=== PATIENT | female | born 1940 | race Caucasian/White ===

== ENCOUNTER 2018-09-22 19:53 | Inpatient (IN) | payer OTHER ==
[2018-09-22 20:17] LABS: WHITE BLOOD COUNT 8.2 10^3/ul (4.8-10.8)
[2018-09-22 20:17] LABS: HEMATOCRIT 27.4 % (37.0-47.0); HEMOGLOBIN 8.7 g/dl (12.0-16.0); MEAN CORPUSCULAR HEMOGLOBIN 28.2 pg (29.0-33.0); MEAN CORPUSCULAR HGB CONC 31.8 g/dl (32.0-37.0); MEAN CORPUSCULAR VOLUME 88.7 fl (82.0-101.0); MEAN PLATELET VOLUME 10.7 fl (7.4-10.4); PLATELET COUNT 198 10^3/UL (140-415); RED BLOOD COUNT 3.09 10^6/ul (4.20-5.40); RED CELL DISTRIBUTION WIDTH 15.9 % (11.5-14.5)
[2018-09-22 20:33] LABS: POSITIVE DIFF @See below
[2018-09-22 20:34] LABS: ADD MAN DIFF? YES
[2018-09-22 20:36] LABS: ALANINE AMINOTRANSFERASE 9 IU/L (13-69); ALBUMIN 2.7 g/dl (3.3-4.9); ALBUMIN/GLOBULIN RATIO 1.17; ALKALINE PHOSPHATASE 80 IU/L (42-121); ANION GAP 12 (5-13); ASPARTATE AMINO TRANSFERASE 13 IU/L (15-46); BILIRUBIN,INDIRECT 0.1 mg/dl (0-1.1); BILIRUBIN,TOTAL 0.1 mg/dl (0.2-1.3); BLOOD UREA NITROGEN 91 mg/dl (7-20); CALCIUM 8.1 mg/dl (8.4-10.2); CARBON DIOXIDE 16 mmol/L (21-31); CHLORIDE 102 mmol/L (97-110); CREATININE 2.52 mg/dl (0.44-1.00); GLUCOSE 99 mg/dl (70-220); POTASSIUM 3.4 mmol/L (3.5-5.1); SODIUM 130 mmol/L (135-144)
[2018-09-22 20:36] LABS: LACTIC ACID 0.7 mmol/L (0.5-2.0)
[2018-09-22] MEDS: AZTREONAM 1 GM/NS (PMX) 50 ML IVPB (20:36)
[2018-09-22] MEDS: SODIUM CHLORIDE 0.9% 1L BAG IV* (20:36)
[2018-09-22 20:37] LABS: INR 3.82; PROTIME 38.9 Sec (11.9-14.9)
[2018-09-22 20:45] LABS: TROPONIN-I < 0.012 ng/ml (0.000-0.120)
[2018-09-22 20:55] LABS: PARTIAL THROMBOPLASTIN TIME 96.8 Sec (23.0-35.0)
[2018-09-22] MEDS: LINEZOLID 600 MG/D5W (PMX) 300 ML IVPB (21:11)
[2018-09-22 21:34] LABS: ANISOCYTOSIS 1+ (0-0); BAND NEUTROPHILS #M 1.4 10^3/ul (0.0-0.6); BAND NEUTROPHILS % (M) 18 % (0-4); EOSINOPHILS % (M) 1 % (0-7); GIANT THROMBO% (M) 1 % (0-0); LYMPHOCYTES #M 0.8 10^3/ul (0.8-2.9); LYMPHOCYTES % (M) 10 % (15-51); MICROCYTOSIS 1+ (0-0); MONOCYTE #M 0.5 10^3/ul (0.3-0.9); MONOCYTES % (M) 7 % (0-11); PLATELET ESTIMATE NORMAL; POIKILOCYTOSIS 1+ (0-0); POLYCHROMASIA 3+ (0-0); SEG NEUT #M 5.4 10^3/ul (1.6-7.5); SEGMENTED NEUTROPHILS (M) % 64 % (39-77); SMUDGE%M 2 % (0-0)
[2018-09-22] MEDS ORDERED: CALCIUM CARBONATE 1000 MG PO (22:00)
[2018-09-22] MEDS ORDERED: TIZANIDINE 4 MG TAB PO (22:00)
[2018-09-22] MEDS ORDERED: ACETAMINOPHEN 325 MG TAB PO (22:00)
[2018-09-22] MEDS ORDERED: ONDANSETRON 4 MG TAB PO (22:00)
[2018-09-22] MEDS ORDERED: ONDANSETRON 4 MG INJ IV (22:00)
[2018-09-22] MEDS ORDERED: DOCUSATE SODIUM 100 MG CAP PO (22:00)
[2018-09-22] MEDS ORDERED: NACL 0.9% 3 ML SYG IV (22:00)
[2018-09-22] MEDS ORDERED: MAGNESIUM HYDROXIDE 30ML CUP PO (22:00)
[2018-09-22] MEDS ORDERED: BISACODYL (EC) 5 MG TAB PO (22:00)
[2018-09-23] MEDS: POTASSIUM CHLORIDE 30 MEQ in SOD CHLORIDE 0.9% 1,000 ML IV (00:28)
[2018-09-23] MEDS: metroNIDAZOLE 500 MG/NS (PMX) 100 ML IVPB ×4 (00:28→21:26)
[2018-09-23] MEDS: LOPERAMIDE 2 MG CAP PO ×5 (00:28→12:00)
[2018-09-23] MEDS: HEPARIN 5,000 UNIT/1 ML VIAL SC ×3 (00:29→14:00)
[2018-09-23 00:51] LABS: ANION GAP 11 (5-13); BLOOD UREA NITROGEN 90 mg/dl (7-20); CALCIUM 8.2 mg/dl (8.4-10.2); CARBON DIOXIDE 17 mmol/L (21-31); CHLORIDE 103 mmol/L (97-110); CREATININE 2.48 mg/dl (0.44-1.00); GLUCOSE 91 mg/dl (70-220); POTASSIUM 3.3 mmol/L (3.5-5.1); SODIUM 131 mmol/L (135-144)
[2018-09-23 01:28] LABS: ADD UMIC YES; UR ASCORBIC ACID 40 mg/dL (NEGATIVE); UR BACTERIA FEW /HPF (NONE SEEN); UR BILIRUBIN (Dip) NEGATIVE (NEGATIVE); UR BLOOD (Dip) NEGATIVE (NEGATIVE); UR CLARITY CLOUDY (CLEAR); UR COLOR YELLOW (YELLOW); UR GLUCOSE (Dip) NEGATIVE (NEGATIVE); UR KETONES (Dip) NEGATIVE (NEGATIVE); UR LEUKOCYTE ESTERASE (Dip) 3+ Leu/ul (NEGATIVE); UR NITRITE (Dip) NEGATIVE (NEGATIVE); UR NONSQUAMOUS EPITHELIAL CELL 1 /HPF (NONE SEEN); UR RBC 2 /HPF (0-5); UR SPECIFIC GRAVITY (Dip) 1.011 (1.003-1.030); UR SQUAMOUS EPITHELIAL CELL FEW /HPF (FEW); UR TOTAL PROTEIN (Dip) NEGATIVE (NEGATIVE); UR UROBILINOGEN (Dip) NEGATIVE (NEGATIVE); UR WBC 36 /HPF (0-5)
[2018-09-23 01:28] LABS: OCCULT BLOOD STOOL NEGATIVE (NEGATIVE)
[2018-09-23 01:42] LABS: OSMOLALITY 299 mOsm/kg (280-295)
[2018-09-23 01:57] LABS: CREATININE,URINE RANDOM 101.17 mg/dl (20-320)
[2018-09-23 01:58] LABS: SODIUM,URINE RANDOM < 13 mmol/L (30-90)
[2018-09-23 02:00] LABS: OSMOLALITY,URINE 264 mOsm/kg (250-1200)
[2018-09-23 02:15] LABS: PROTEIN/CREAT RATIO 0.33 RATIO
[2018-09-23] MEDS ORDERED: PENDING SANTYL ORDER FOR WOUND CARE XX (03:30)
[2018-09-23] MEDS ORDERED: HEPARIN 5,000 UNIT/0.5 ML VIAL ×2 (05:21)
[2018-09-23] MEDS ORDERED: LEVOTHYROXINE 100 MCG TAB (05:25)
[2018-09-23] MEDS: LEVOTHYROXINE 100 MCG TAB PO (06:04)
[2018-09-23 06:29] LABS: HEMATOCRIT 28.9 % (37.0-47.0); HEMOGLOBIN 8.8 g/dl (12.0-16.0); MEAN CORPUSCULAR HEMOGLOBIN 27.1 pg (29.0-33.0); MEAN CORPUSCULAR HGB CONC 30.4 g/dl (32.0-37.0); MEAN CORPUSCULAR VOLUME 88.9 fl (82.0-101.0); MEAN PLATELET VOLUME 10.7 fl (7.4-10.4); PLATELET COUNT 207 10^3/UL (140-415); RED BLOOD COUNT 3.25 10^6/ul (4.20-5.40); RED CELL DISTRIBUTION WIDTH 15.9 % (11.5-14.5)
[2018-09-23 06:36] LABS: ADD MAN DIFF? YES; POSITIVE DIFF @See below
[2018-09-23 06:41] LABS: INR 3.96; PT RATIO 3.1
[2018-09-23 06:54] LABS: IRON 29 ug/dl (35-150)
[2018-09-23 06:58] LABS: ALANINE AMINOTRANSFERASE 7 IU/L (13-69); ALBUMIN 2.7 g/dl (3.3-4.9); ALBUMIN/GLOBULIN RATIO 1.17; ALKALINE PHOSPHATASE 85 IU/L (42-121); ANION GAP 13 (5-13); ASPARTATE AMINO TRANSFERASE 12 IU/L (15-46); BLOOD UREA NITROGEN 89 mg/dl (7-20); CALCIUM 8.1 mg/dl (8.4-10.2); CARBON DIOXIDE 16 mmol/L (21-31); CHLORIDE 104 mmol/L (97-110); CREATININE 2.38 mg/dl (0.44-1.00); GLUCOSE 109 mg/dl (70-220); MAGNESIUM 2.3 mg/dl (1.7-2.5); POTASSIUM 3.5 mmol/L (3.5-5.1); SODIUM 133 mmol/L (135-144)
[2018-09-23 07:03] LABS: % IRON SATURATION 15 % SAT (22-52); TOTAL IRON BINDING CAPACITY 197 ug/dl (241-421)
[2018-09-23 07:37] LABS: BAND NEUTROPHILS #M 1.8 10^3/ul (0.0-0.6); BAND NEUTROPHILS % (M) 27 % (0-4); EOSINOPHILS % (M) 3 % (0-7); HYPOCHROMASIA 1+ (0-0); LYMPHOCYTES #M 0.7 10^3/ul (0.8-2.9); LYMPHOCYTES % (M) 11 % (15-51); METAMYELOCYTES %M 1 % (0-0); MONOCYTE #M 0.5 10^3/ul (0.3-0.9); MONOCYTES % (M) 8 % (0-11); PLATELET ESTIMATE NORMAL; POIKILOCYTOSIS 1+ (0-0); POLYCHROMASIA 1+ (0-0); PROMYELOCYTES % (M) 1 % (0-0); REACTIVE LYMPHOCYTES% (M) 1 % (0-0); SEG NEUT #M 3.5 10^3/ul (1.6-7.5); SEGMENTED NEUTROPHILS (M) % 48 % (39-77); SMUDGE%M 61 % (0-0); SPHEROCYTES 1+ (0-0)
[2018-09-23] MEDS: ERTAPENEM SODIUM 0.5 GM in SOD CHLORIDE 0.9% 100 ML IVPB (07:50)
[2018-09-23] MEDS: PANTOPRAZOLE (EC) 40 MG TAB PO (07:50)
[2018-09-23 08:09] LABS: HEMOGLOBIN A1C 5.3 % (0-5.9)
[2018-09-23 08:39] LABS: FERRITIN 93.8 ng/ml (11.1-264.0)
[2018-09-23] MEDS: ASCORBIC ACID 500 MG TAB PO ×2 (08:56→21:25)
[2018-09-23] MEDS: FERROUS SULFATE (EC) 325 MG TAB PO ×2 (08:56→21:26)
[2018-09-23] MEDS: GABAPENTIN 300 MG CAP PO ×3 (08:56→21:25)
[2018-09-23] MEDS: MAGNESIUM OXIDE 400 MG TAB PO (08:56)
[2018-09-23] MEDS: CALCIUM/VITAMIN D (500/200) TAB PO (08:56)
[2018-09-23] MEDS: MULTIVITAMINS/MINERALS TAB PO (08:56)
[2018-09-23] MEDS: LINEZOLID 600 MG/D5W (PMX) 300 ML IVPB ×2 (08:59→21:26)
[2018-09-23] MEDS ORDERED: NON-FORMULARY/PATIENT OWN MED (Amino Acids/Protein Hydrolys (Pro-Stat Liquid) 30 ML) PO (09:00)
[2018-09-23] MEDS: HYDROCODONE/APAP (5/325) TAB PO (10:47)
[2018-09-23 12:06] LABS: ADD MAN DIFF? NO
[2018-09-23 12:08] LABS: WHITE BLOOD COUNT 5.2 10^3/ul (4.8-10.8)
[2018-09-23 12:08] LABS: ABNORMAL IP MESSAGE 1; BASOPHILS % 0.2 % (0.0-2.0); EOSINOPHILS # 0.1 10^3/ul (0.0-0.5); EOSINOPHILS % 2.3 % (0.0-7.0); HEMATOCRIT 29.9 % (37.0-47.0); HEMOGLOBIN 9.4 g/dl (12.0-16.0); LYMPHOCYTES # 0.6 10^3/ul (0.8-2.9); LYMPHOCYTES % 11.3 % (15.0-51.0); MEAN CORPUSCULAR HGB CONC 31.4 g/dl (32.0-37.0); MEAN PLATELET VOLUME 10.5 fl (7.4-10.4); MONOCYTE # 0.5 10^3/ul (0.3-0.9); MONOCYTES % 9.2 % (0.0-11.0); NEUTROPHILS % 76.2 % (39.0-77.0); PLATELET COUNT 166 10^3/UL (140-415); RED BLOOD COUNT 3.36 10^6/ul (4.20-5.40); RED CELL DISTRIBUTION WIDTH 15.9 % (11.5-14.5)
[2018-09-23] MEDS: SOD CHLORIDE 0.9% 1,000 ML IV ×2 (12:31→14:30)
[2018-09-23 12:43] LABS: POSITIVE DIFF @See below
[2018-09-23] MEDS ORDERED: SOD CHLORIDE 0.9% 1,000 ML IV (13:00)
[2018-09-23 13:10] LABS: TROPONIN-I < 0.012 ng/ml (0.000-0.120)
[2018-09-23] MEDS ORDERED: [UNRECOGNIZED DRUG - REMARK] IV (13:30)
[2018-09-23] MEDS: AMIODARONE 150MG/D5W BOLUS 100 ML IV ×2 (13:30→19:28)
[2018-09-23 13:35] LABS: ANION GAP 11 (5-13); BLOOD UREA NITROGEN 87 mg/dl (7-20); CALCIUM 7.8 mg/dl (8.4-10.2); CARBON DIOXIDE 13 mmol/L (21-31); CHLORIDE 107 mmol/L (97-110); CREATININE 2.26 mg/dl (0.44-1.00); GLUCOSE 90 mg/dl (70-220); MAGNESIUM 2.3 mg/dl (1.7-2.5); PHOSPHORUS 5.5 mg/dl (2.5-4.9); POTASSIUM 3.4 mmol/L (3.5-5.1); SODIUM 131 mmol/L (135-144)
[2018-09-23] MEDS: LIDOCAINE 1% (MPF) 5 ML VIAL SC ×2 (16:30→17:00)
[2018-09-23 16:32] LABS: TROPONIN-I < 0.012 ng/ml (0.000-0.120)
[2018-09-23] MEDS: VANCOMYCIN HCL 250 MG/5ML POSYG PO (17:46)
[2018-09-23] MEDS: PHENYLephrine 80 MG in DEXTROSE 5% 492 ML IV (18:58)
[2018-09-23] MEDS: DIGOXIN 500 MCG INJ IV (18:59)
[2018-09-23 19:00] LABS: CK-MB 0.56 ng/ml (0.0-2.4); TROPONIN-I < 0.012 ng/ml (0.000-0.120)
[2018-09-23 19:02] LABS: CREATINE KINASE < 20 IU/L (23-200)
[2018-09-23] MEDS: AMIODARONE 900 MG in DEXTROSE 5% 482 ML IV (20:01)
[2018-09-23] MEDS ORDERED: AMIODARONE 200 MG TAB PO (21:00)
[2018-09-24] MEDS: DIGOXIN 500 MCG INJ IV
[2018-09-24] MEDS: VANCOMYCIN HCL 250 MG/5ML POSYG PO ×4 (00:05→18:10)
[2018-09-24] MEDS: ONDANSETRON 4 MG INJ IV ×2 (00:19→06:47)
[2018-09-24 01:35] LABS: CREATINE KINASE < 20 IU/L (23-200)
[2018-09-24 01:46] LABS: CK-MB 0.79 ng/ml (0.0-2.4); TROPONIN-I 0.026 ng/ml (0.000-0.120)
[2018-09-24 05:30] LABS: ADD MAN DIFF? NO
[2018-09-24] MEDS: metroNIDAZOLE 500 MG/NS (PMX) 100 ML IVPB ×3 (05:49→22:07)
[2018-09-24 05:52] LABS: INR 3.19; PROTIME 33.6 Sec (11.9-14.9); PT RATIO 2.6
[2018-09-24 05:58] LABS: CREATINE KINASE < 20 IU/L (23-200)
[2018-09-24 06:08] LABS: TROPONIN-I 0.031 ng/ml (0.000-0.120)
[2018-09-24 06:12] LABS: CK-MB 0.76 ng/ml (0.0-2.4)
[2018-09-24] MEDS: PANTOPRAZOLE (EC) 40 MG TAB PO (06:47)
[2018-09-24] MEDS: LEVOTHYROXINE 100 MCG TAB PO (06:47)
[2018-09-24] MEDS ORDERED: SOD CHLORIDE 0.9% 1,000 ML IV (07:00)
[2018-09-24 07:09] LABS: WHITE BLOOD COUNT 9.6 10^3/ul (4.8-10.8)
[2018-09-24 07:09] LABS: BASOPHILS % 0.3 % (0.0-2.0); EOSINOPHILS # 0.1 10^3/ul (0.0-0.5); EOSINOPHILS % 0.5 % (0.0-7.0); HEMATOCRIT 31.1 % (37.0-47.0); HEMOGLOBIN 9.6 g/dl (12.0-16.0); LYMPHOCYTES # 0.7 10^3/ul (0.8-2.9); LYMPHOCYTES % 7.6 % (15.0-51.0); MEAN CORPUSCULAR HEMOGLOBIN 27.6 pg (29.0-33.0); MEAN CORPUSCULAR HGB CONC 30.9 g/dl (32.0-37.0); MEAN CORPUSCULAR VOLUME 89.4 fl (82.0-101.0); MEAN PLATELET VOLUME 10.9 fl (7.4-10.4); MONOCYTE # 0.9 10^3/ul (0.3-0.9); MONOCYTES % 9.8 % (0.0-11.0); NEUTROPHIL # 7.7 10^3/ul (1.6-7.5); NEUTROPHILS % 80.2 % (39.0-77.0); PLATELET COUNT 275 10^3/UL (140-415); RED BLOOD COUNT 3.48 10^6/ul (4.20-5.40); RED CELL DISTRIBUTION WIDTH 15.9 % (11.5-14.5)
[2018-09-24 07:40] LABS: ANION GAP 13 (5-13)
[2018-09-24 07:42] LABS: BLOOD UREA NITROGEN 85 mg/dl (7-20); CARBON DIOXIDE 15 mmol/L (21-31); CHLORIDE 106 mmol/L (97-110); CREATININE 2.43 mg/dl (0.44-1.00); GLUCOSE 102 mg/dl (70-220); POTASSIUM 3.6 mmol/L (3.5-5.1); SODIUM 134 mmol/L (135-144)
[2018-09-24 07:43] LABS: CALCIUM 8.2 mg/dl (8.4-10.2); MAGNESIUM 2.4 mg/dl (1.7-2.5); PHOSPHORUS 6.4 mg/dl (2.5-4.9)
[2018-09-24] MEDS: ERTAPENEM SODIUM 0.5 GM in SOD CHLORIDE 0.9% 100 ML IVPB (08:00)
[2018-09-24] MEDS: SOD CHLORIDE 0.9% 1,000 ML IV ×2 (08:36→19:00)
[2018-09-24] MEDS: ASCORBIC ACID 500 MG TAB PO ×2 (08:47→21:06)
[2018-09-24] MEDS: MULTIVITAMINS/MINERALS TAB PO (08:47)
[2018-09-24] MEDS: GABAPENTIN 300 MG CAP PO ×3 (08:48→21:06)
[2018-09-24] MEDS: FERROUS SULFATE (EC) 325 MG TAB PO ×2 (08:48→21:06)
[2018-09-24] MEDS: MAGNESIUM OXIDE 400 MG TAB PO (08:49)
[2018-09-24] MEDS: LINEZOLID 600 MG/D5W (PMX) 300 ML IVPB ×2 (08:51→21:02)
[2018-09-24] MEDS: CALCIUM/VITAMIN D (500/200) TAB PO (08:51)
[2018-09-24] MEDS: HYDROCODONE/APAP (5/325) TAB PO (16:04)
[2018-09-24] MEDS: PHENYLephrine 80 MG in DEXTROSE 5% 492 ML IV (16:46)
[2018-09-24] MEDS: AMIODARONE 200 MG TAB PO (21:06)
[2018-09-25] MEDS: VANCOMYCIN HCL 250 MG/5ML POSYG PO ×4 (00:18→18:45)
[2018-09-25] MEDS: SOD CHLORIDE 0.9% 1,000 ML IV ×2 (02:43→16:48)
[2018-09-25 04:52] LABS: ADD MAN DIFF? NO
[2018-09-25 04:56] LABS: BASOPHILS % 0.1 % (0.0-2.0); EOSINOPHILS # 0.2 10^3/ul (0.0-0.5); EOSINOPHILS % 2.2 % (0.0-7.0); HEMOGLOBIN 9.3 g/dl (12.0-16.0); LYMPHOCYTES % 11.1 % (15.0-51.0); MEAN CORPUSCULAR HEMOGLOBIN 27.6 pg (29.0-33.0); MEAN PLATELET VOLUME 10.2 fl (7.4-10.4); NEUTROPHIL # 6.7 10^3/ul (1.6-7.5); NEUTROPHILS % 73.6 % (39.0-77.0); PLATELET COUNT 261 10^3/UL (140-415); RED BLOOD COUNT 3.37 10^6/ul (4.20-5.40); RED CELL DISTRIBUTION WIDTH 16.2 % (11.5-14.5)
[2018-09-25 04:56] LABS: WHITE BLOOD COUNT 9.1 10^3/ul (4.8-10.8)
[2018-09-25 05:20] LABS: PROTIME 28.6 Sec (11.9-14.9); PT RATIO 2.2
[2018-09-25 05:22] LABS: ANION GAP 13 (5-13); BLOOD UREA NITROGEN 77 mg/dl (7-20); CALCIUM 8.1 mg/dl (8.4-10.2); CARBON DIOXIDE 16 mmol/L (21-31); CHLORIDE 103 mmol/L (97-110); CREATININE 2.85 mg/dl (0.44-1.00); GLUCOSE 82 mg/dl (70-220); MAGNESIUM 2.5 mg/dl (1.7-2.5); PHOSPHORUS 6.2 mg/dl (2.5-4.9); POTASSIUM 3.6 mmol/L (3.5-5.1); SODIUM 132 mmol/L (135-144)
[2018-09-25] MEDS: metroNIDAZOLE 500 MG/NS (PMX) 100 ML IVPB ×3 (05:35→22:33)
[2018-09-25] MEDS: ERTAPENEM SODIUM 0.5 GM in SOD CHLORIDE 0.9% 100 ML IVPB (07:52)
[2018-09-25] MEDS: PANTOPRAZOLE (EC) 40 MG TAB PO (07:52)
[2018-09-25] MEDS: LEVOTHYROXINE 100 MCG TAB PO (07:52)
[2018-09-25 08:59] LABS: AADO2 Arterial 69.7 mmHg (7.0-24.0); Allen Test ACCEPTAB; Arterial Base Excess -13.5 mmol/L (-3.0-3); Arterial Blood Gas Oxygen Sat 93.1 mmHG (95.0-100.0); Arterial COHb 0.4 % (0.0-3.0); Arterial Fraction of Oxyhgb 92.5 % (93.0-99.0); Arterial MetHb 0.2 % (0.0-1.5); Arterial Total Hemglobin 10.8 g/dl (12.0-18.0); Arterial pCO2 45.6 mmhg (35-45); MODE NASAL CANNULA; Site Right Radial
[2018-09-25] MEDS: ASCORBIC ACID 500 MG TAB PO ×2 (09:41→21:00)
[2018-09-25] MEDS: MAGNESIUM OXIDE 400 MG TAB PO (09:41)
[2018-09-25] MEDS: MULTIVITAMINS/MINERALS TAB PO (09:41)
[2018-09-25] MEDS: CALCIUM/VITAMIN D (500/200) TAB PO (09:41)
[2018-09-25] MEDS: FERROUS SULFATE (EC) 325 MG TAB PO ×2 (09:41→21:00)
[2018-09-25] MEDS: GABAPENTIN 300 MG CAP PO ×3 (09:42→21:00)
[2018-09-25] MEDS: LINEZOLID 600 MG/D5W (PMX) 300 ML IVPB ×2 (09:42→21:22)
[2018-09-25] MEDS: AMIODARONE 200 MG TAB PO ×2 (09:42→21:00)
[2018-09-25 10:26] LABS: FREE T4 (FREE THYROXINE) 1.09 ng/dl (0.85-1.93)
[2018-09-25] MEDS: HYDROCODONE/APAP (5/325) TAB PO (10:31)
[2018-09-25] MEDS: SODIUM BICARBONATE (IV ADD) 150 MEQ in DEXTROSE 5% 850 ML IV ×2 (11:12→23:52)
[2018-09-25] MEDS: LORAZEPAM 2 MG INJ IV (14:36)
[2018-09-25] MEDS: WARFARIN 2.5 MG TAB PO (17:14)
[2018-09-25 17:29] LABS: AADO2 Arterial 272.4 mmHg (7.0-24.0); Allen Test ACCEPTAB; Arterial Base Excess -15.9 mmol/L (-3.0-3); Arterial Blood Gas Oxygen Sat 98.7 mmHG (95.0-100.0); Arterial COHb 0.2 % (0.0-3.0); Arterial Fraction of Oxyhgb 98.1 % (93.0-99.0); Arterial HCO3 15.3 mmol/L (22.0-26.0); Arterial MetHb 0.4 % (0.0-1.5); Arterial Total Hemglobin 11.5 g/dl (12.0-18.0); Arterial pCO2 62.1 mmhg (35-45); MODE MASK - SIMPLE; Site Right Radial
[2018-09-25] MEDS: FLUMAZENIL 0.5 MG INJ IV ×2 (21:20→22:08)
[2018-09-25] MEDS: NALOXONE (0.4 MG/ML) INJ IV ×2 (21:35→22:08)
[2018-09-26] MEDS: VANCOMYCIN HCL 250 MG/5ML POSYG PO ×4 (00:36→17:05)
[2018-09-26] MEDS: SOD CHLORIDE 0.9% 1,000 ML IV ×2 (02:01→03:33)
[2018-09-26] MEDS ORDERED: LORAZEPAM 2 MG INJ IV (03:00)
[2018-09-26 04:33] LABS: AADO2 Arterial 316.4 mmHg (7.0-24.0); Allen Test ACCEPTAB; Arterial Base Excess -15.4 mmol/L (-3.0-3); Arterial Blood Gas Oxygen Sat 96.9 mmHG (95.0-100.0); Arterial COHb 0.1 % (0.0-3.0); Arterial Fraction of Oxyhgb 96.4 % (93.0-99.0); Arterial HCO3 16.4 mmol/L (22.0-26.0); Arterial MetHb 0.4 % (0.0-1.5); Arterial Total Hemglobin 11.4 g/dl (12.0-18.0); Arterial pCO2 70.7 mmhg (35-45); Blood Gas IEPAP 20/10; MODE MASK - BIPAP; Site Left Radial
[2018-09-26] MEDS: NA BICARBONATE 8.4% 50 ML SYG IV ×2 (04:59)
[2018-09-26 05:08] LABS: ADD MAN DIFF? NO
[2018-09-26 05:13] LABS: BASOPHILS % 0.3 % (0.0-2.0); EOSINOPHILS % 0.1 % (0.0-7.0); HEMATOCRIT 32.8 % (37.0-47.0); LYMPHOCYTES # 0.6 10^3/ul (0.8-2.9); LYMPHOCYTES % 4.4 % (15.0-51.0); MEAN CORPUSCULAR HEMOGLOBIN 27.6 pg (29.0-33.0); MEAN CORPUSCULAR HGB CONC 30.5 g/dl (32.0-37.0); MEAN CORPUSCULAR VOLUME 90.6 fl (82.0-101.0); MEAN PLATELET VOLUME 9.9 fl (7.4-10.4); MONOCYTE # 0.9 10^3/ul (0.3-0.9); MONOCYTES % 5.9 % (0.0-11.0); NEUTROPHIL # 12.2 10^3/ul (1.6-7.5); PLATELET COUNT 312 10^3/UL (140-415); RED BLOOD COUNT 3.62 10^6/ul (4.20-5.40); RED CELL DISTRIBUTION WIDTH 15.9 % (11.5-14.5)
[2018-09-26 05:13] LABS: WHITE BLOOD COUNT 14.3 10^3/ul (4.8-10.8)
[2018-09-26 05:35] LABS: PHOSPHORUS 7.4 mg/dl (2.5-4.9)
[2018-09-26 05:35] LABS: INR 2.19; MAGNESIUM 2.5 mg/dl (1.7-2.5); PROTIME 24.9 Sec (11.9-14.9); PT RATIO 1.9
[2018-09-26 05:46] LABS: ALANINE AMINOTRANSFERASE 20 IU/L (13-69); ALBUMIN 2.9 g/dl (3.3-4.9); ALBUMIN/GLOBULIN RATIO 1.31; ALKALINE PHOSPHATASE 79 IU/L (42-121); ANION GAP 14 (5-13); ASPARTATE AMINO TRANSFERASE 15 IU/L (15-46); BLOOD UREA NITROGEN 76 mg/dl (7-20); CALCIUM 7.9 mg/dl (8.4-10.2); CARBON DIOXIDE 17 mmol/L (21-31); CHLORIDE 100 mmol/L (97-110); CREATININE 3.36 mg/dl (0.44-1.00); GLUCOSE 136 mg/dl (70-220); SODIUM 131 mmol/L (135-144); TOTAL PROTEIN 5.1 g/dl (6.1-8.1)
[2018-09-26] MEDS: metroNIDAZOLE 500 MG/NS (PMX) 100 ML IVPB ×3 (06:09→21:38)
[2018-09-26 06:18] LABS: AADO2 Arterial 329.2 mmHg (7.0-24.0); Arterial Base Excess -11.6 mmol/L (-3.0-3); Arterial Blood Gas Oxygen Sat 97.8 mmHG (95.0-100.0); Arterial COHb 0.1 % (0.0-3.0); Arterial Fraction of Oxyhgb 97.4 % (93.0-99.0); Arterial HCO3 17.6 mmol/L (22.0-26.0); Arterial MetHb 0.3 % (0.0-1.5); Arterial Total Hemglobin 11.6 g/dl (12.0-18.0); Arterial pCO2 54.7 mmhg (35-45); Blood Gas IEPAP 20/10; MODE MASK - BIPAP; Site Left Radial
[2018-09-26] MEDS: PHENYLephrine 80 MG in DEXTROSE 5% 492 ML IV (06:20)
[2018-09-26] MEDS: PANTOPRAZOLE (EC) 40 MG TAB PO (07:05)
[2018-09-26] MEDS: SODIUM BICARBONATE (IV ADD) 150 MEQ in DEXTROSE 5% 850 ML IV ×2 (08:12→18:38)
[2018-09-26] MEDS: LINEZOLID 600 MG/D5W (PMX) 300 ML IVPB ×2 (08:12→21:38)
[2018-09-26] MEDS: FUROSEMIDE 40 MG INJ IV (08:12)
[2018-09-26] MEDS: AMIODARONE 200 MG TAB PO ×2 (09:00→21:38)
[2018-09-26] MEDS: FERROUS SULFATE (EC) 325 MG TAB PO ×2 (10:43→21:38)
[2018-09-26] MEDS: ASCORBIC ACID 500 MG TAB PO ×2 (10:43→21:39)
[2018-09-26] MEDS: GABAPENTIN 300 MG CAP PO ×3 (10:43→21:39)
[2018-09-26] MEDS: MAGNESIUM OXIDE 400 MG TAB PO (10:43)
[2018-09-26] MEDS: MULTIVITAMINS/MINERALS TAB PO (10:43)
[2018-09-26] MEDS: CALCIUM/VITAMIN D (500/200) TAB PO (10:43)
[2018-09-26] MEDS: LEVOTHYROXINE 100 MCG TAB PO (10:44)
[2018-09-26] MEDS: ERTAPENEM SODIUM 0.5 GM in SOD CHLORIDE 0.9% 100 ML IVPB (12:00)
[2018-09-26] MEDS: LANSOPRAZOLE 30 MG CAP GTB (12:00)
[2018-09-26 15:30] LABS: AADO2 Arterial 443.1 mmHg (7.0-24.0); Allen Test ACCEPTAB; Arterial Base Excess -9.5 mmol/L (-3.0-3); Arterial COHb 0.3 % (0.0-3.0); Arterial Fraction of Oxyhgb 93.4 % (93.0-99.0); Arterial HCO3 19.2 mmol/L (22.0-26.0); Arterial MetHb 0.3 % (0.0-1.5); Arterial Total Hemglobin 11.3 g/dl (12.0-18.0); Arterial pCO2 54.7 mmhg (35-45); Blood Gas IEPAP 20/10; MODE MASK - BIPAP; Site Left Radial
[2018-09-26] MEDS: WARFARIN 2.5 MG TAB PO (17:06)
[2018-09-26 20:47] LABS: AADO2 Arterial 583.9 mmHg (7.0-24.0); Allen Test ACCEPTAB; Arterial Base Excess -6.9 mmol/L (-3.0-3); Arterial Blood Gas Oxygen Sat 94.6 mmHG (95.0-100.0); Arterial COHb 0.3 % (0.0-3.0); Arterial Fraction of Oxyhgb 94.1 % (93.0-99.0); Arterial HCO3 21.3 mmol/L (22.0-26.0); Arterial MetHb 0.2 % (0.0-1.5); Arterial pCO2 55.6 mmhg (35-45); Blood Gas IEPAP 20/5; MODE MASK - BIPAP; Site Left Radial
[2018-09-27] MEDS: VANCOMYCIN HCL 250 MG/5ML POSYG PO ×4 (00:16→18:28)
[2018-09-27 04:57] LABS: ADD MAN DIFF? NO
[2018-09-27 05:00] LABS: WHITE BLOOD COUNT 12.8 10^3/ul (4.8-10.8)
[2018-09-27 05:00] LABS: ABNORMAL IP MESSAGE 1; BASOPHILS % 0.2 % (0.0-2.0); EOSINOPHILS % 0.3 % (0.0-7.0); HEMATOCRIT 29.6 % (37.0-47.0); HEMOGLOBIN 9.2 g/dl (12.0-16.0); LYMPHOCYTES # 0.6 10^3/ul (0.8-2.9); LYMPHOCYTES % 4.3 % (15.0-51.0); MEAN CORPUSCULAR HEMOGLOBIN 27.5 pg (29.0-33.0); MEAN CORPUSCULAR HGB CONC 31.1 g/dl (32.0-37.0); MEAN CORPUSCULAR VOLUME 88.4 fl (82.0-101.0); MEAN PLATELET VOLUME 9.6 fl (7.4-10.4); MONOCYTE # 0.7 10^3/ul (0.3-0.9); MONOCYTES % 5.3 % (0.0-11.0); NEUTROPHIL # 11.4 10^3/ul (1.6-7.5); NEUTROPHILS % 88.8 % (39.0-77.0); PLATELET COUNT 232 10^3/UL (140-415); RED BLOOD COUNT 3.35 10^6/ul (4.20-5.40); RED CELL DISTRIBUTION WIDTH 15.9 % (11.5-14.5)
[2018-09-27] MEDS: SODIUM BICARBONATE (IV ADD) 150 MEQ in DEXTROSE 5% 850 ML IV ×3 (05:08→18:38)
[2018-09-27] MEDS: metroNIDAZOLE 500 MG/NS (PMX) 100 ML IVPB ×3 (05:08→21:36)
[2018-09-27] MEDS: LANSOPRAZOLE 30 MG CAP GTB (05:08)
[2018-09-27 05:19] LABS: INR 2.64; PROTIME 28.9 Sec (11.9-14.9); PT RATIO 2.3
[2018-09-27 05:24] LABS: POSITIVE DIFF @See below
[2018-09-27 05:26] LABS: PHOSPHORUS 6.2 mg/dl (2.5-4.9)
[2018-09-27 05:26] LABS: MAGNESIUM 2.3 mg/dl (1.7-2.5)
[2018-09-27 05:34] LABS: ANION GAP 13 (5-13)
[2018-09-27 05:37] LABS: ALBUMIN/GLOBULIN RATIO 1.21
[2018-09-27 05:53] LABS: ALANINE AMINOTRANSFERASE 21 IU/L (13-69); ALBUMIN 2.3 g/dl (3.3-4.9); ALKALINE PHOSPHATASE 67 IU/L (42-121); ASPARTATE AMINO TRANSFERASE 17 IU/L (15-46); BLOOD UREA NITROGEN 71 mg/dl (7-20); CALCIUM 7.1 mg/dl (8.4-10.2); CARBON DIOXIDE 23 mmol/L (21-31); CHLORIDE 95 mmol/L (97-110); CREATININE 2.88 mg/dl (0.44-1.00); GLUCOSE 97 mg/dl (70-220); POTASSIUM 3.3 mmol/L (3.5-5.1); SODIUM 131 mmol/L (135-144); TOTAL PROTEIN 4.2 g/dl (6.1-8.1)
[2018-09-27 07:38] LABS: AADO2 Arterial 588.9 mmHg (7.0-24.0); Allen Test ACCEPTAB; Arterial Base Excess -4.5 mmol/L (-3.0-3); Arterial Blood Gas Oxygen Sat 91.8 mmHG (95.0-100.0); Arterial COHb 0 % (0.0-3.0); Arterial Fraction of Oxyhgb 91.6 % (93.0-99.0); Arterial HCO3 23.8 mmol/L (22.0-26.0); Arterial MetHb 0.2 % (0.0-1.5); Arterial pCO2 59.7 mmhg (35-45); Blood Gas IEPAP 20/10; Blood Gas PS 10; MODE MASK - BIPAP; Site Left Radial
[2018-09-27] MEDS: MULTIVITAMINS/MINERALS TAB PO (08:38)
[2018-09-27] MEDS: MAGNESIUM OXIDE 400 MG TAB PO (08:38)
[2018-09-27] MEDS: FERROUS SULFATE (EC) 325 MG TAB PO ×2 (08:39→21:36)
[2018-09-27] MEDS: AMIODARONE 200 MG TAB PO ×2 (08:39→21:36)
[2018-09-27] MEDS: CALCIUM/VITAMIN D (500/200) TAB PO (08:39)
[2018-09-27] MEDS: LEVOTHYROXINE 100 MCG TAB PO (08:39)
[2018-09-27] MEDS: ASCORBIC ACID 500 MG TAB PO ×2 (08:39→21:36)
[2018-09-27] MEDS: POTASSIUM CHLORIDE 100 ML IVPB ×2 (08:43→11:26)
[2018-09-27] MEDS: GABAPENTIN 300 MG CAP PO ×3 (08:46→21:34)
[2018-09-27] MEDS: LINEZOLID 600 MG/D5W (PMX) 300 ML IVPB ×2 (08:47→20:34)
[2018-09-27] MEDS: PROPOFOL 100 ML IV ×2 (09:40→22:00)
[2018-09-27 09:55] LABS: AADO2 Arterial 569.2 mmHg (7.0-24.0); Allen Test ACCEPTAB; Arterial Base Excess -4.2 mmol/L (-3.0-3); Arterial Blood Gas Oxygen Sat 97.6 mmHG (95.0-100.0); Arterial COHb 0.3 % (0.0-3.0); Arterial Fraction of Oxyhgb 97.1 % (93.0-99.0); Arterial HCO3 21.8 mmol/L (22.0-26.0); Arterial MetHb 0.2 % (0.0-1.5); Arterial Total Hemglobin 10.3 g/dl (12.0-18.0); Arterial pCO2 43.4 mmhg (35-45); MODE VENT - AC; Site Right Radial
[2018-09-27] MEDS: SOD CHLORIDE 0.9% 1,000 ML IV (10:06)
[2018-09-27] MEDS: ERTAPENEM SODIUM 0.5 GM in SOD CHLORIDE 0.9% 100 ML IVPB (13:26)
[2018-09-27] MEDS: WARFARIN 2.5 MG TAB PO (18:29)
[2018-09-27] MEDS: ACETAMINOPHEN 325 MG TAB PO (18:31)
[2018-09-28] MEDS: VANCOMYCIN HCL 250 MG/5ML POSYG PO ×4 (00:11→17:42)
[2018-09-28] MEDS: ACETAMINOPHEN 325 MG TAB PO ×2 (04:43→20:26)
[2018-09-28] MEDS: PROPOFOL 100 ML IV ×2 (04:45→18:00)
[2018-09-28 05:16] LABS: ADD MAN DIFF? NO
[2018-09-28 05:22] LABS: WHITE BLOOD COUNT 14.6 10^3/ul (4.8-10.8)
[2018-09-28 05:22] LABS: BASOPHILS % 0.1 % (0.0-2.0); EOSINOPHILS # 0.1 10^3/ul (0.0-0.5); EOSINOPHILS % 0.7 % (0.0-7.0); HEMATOCRIT 26.7 % (37.0-47.0); HEMOGLOBIN 8.8 g/dl (12.0-16.0); LYMPHOCYTES # 0.7 10^3/ul (0.8-2.9); LYMPHOCYTES % 5.1 % (15.0-51.0); MEAN PLATELET VOLUME 9.1 fl (7.4-10.4); MONOCYTE # 0.4 10^3/ul (0.3-0.9); MONOCYTES % 2.7 % (0.0-11.0); NEUTROPHIL # 13.1 10^3/ul (1.6-7.5); NEUTROPHILS % 90.2 % (39.0-77.0); PLATELET COUNT 221 10^3/UL (140-415); RED BLOOD COUNT 3.14 10^6/ul (4.20-5.40); RED CELL DISTRIBUTION WIDTH 16.1 % (11.5-14.5)
[2018-09-28 05:39] LABS: INR 3.39; PROTIME 35.3 Sec (11.9-14.9); PT RATIO 2.8
[2018-09-28 06:00] LABS: ALANINE AMINOTRANSFERASE 21 IU/L (13-69); ALBUMIN 2.1 g/dl (3.3-4.9); ALBUMIN/GLOBULIN RATIO 1.23; ALKALINE PHOSPHATASE 72 IU/L (42-121); ANION GAP 12 (5-13); ASPARTATE AMINO TRANSFERASE 20 IU/L (15-46); BLOOD UREA NITROGEN 59 mg/dl (7-20); CALCIUM 6.8 mg/dl (8.4-10.2); CARBON DIOXIDE 26 mmol/L (21-31); CHLORIDE 97 mmol/L (97-110); CREATININE 2.05 mg/dl (0.44-1.00); GLUCOSE 97 mg/dl (70-220); POTASSIUM 3.1 mmol/L (3.5-5.1); SODIUM 135 mmol/L (135-144); TOTAL PROTEIN 3.8 g/dl (6.1-8.1)
[2018-09-28 06:07] LABS: MAGNESIUM 2.1 mg/dl (1.7-2.5)
[2018-09-28 06:07] LABS: PHOSPHORUS 3.7 mg/dl (2.5-4.9)
[2018-09-28] MEDS: metroNIDAZOLE 500 MG/NS (PMX) 100 ML IVPB ×3 (06:10→22:18)
[2018-09-28] MEDS: LEVOTHYROXINE 100 MCG TAB PO (06:10)
[2018-09-28] MEDS: LANSOPRAZOLE 30 MG CAP GTB (06:10)
[2018-09-28] MEDS: SOD CHLORIDE 0.9% 1,000 ML IV (08:05)
[2018-09-28] MEDS: POTASSIUM CHLORIDE 50 ML IVPB ×2 (09:43→11:16)
[2018-09-28] MEDS: LINEZOLID 600 MG/D5W (PMX) 300 ML IVPB ×2 (09:46→20:25)
[2018-09-28] MEDS: MAGNESIUM OXIDE 400 MG TAB PO (09:50)
[2018-09-28] MEDS: GABAPENTIN 300 MG CAP PO ×3 (09:50→20:26)
[2018-09-28] MEDS: FERROUS SULFATE (EC) 325 MG TAB PO ×2 (09:50→20:26)
[2018-09-28] MEDS: ASCORBIC ACID 500 MG TAB PO ×2 (09:50→20:26)
[2018-09-28] MEDS: AMIODARONE 200 MG TAB PO ×2 (09:50→20:26)
[2018-09-28] MEDS: CALCIUM/VITAMIN D (500/200) TAB PO (09:50)
[2018-09-28] MEDS: MULTIVITAMINS/MINERALS TAB PO (09:50)
[2018-09-28] MEDS: ERTAPENEM SODIUM 0.5 GM in SOD CHLORIDE 0.9% 100 ML IVPB (12:10)
[2018-09-28] MEDS: FUROSEMIDE 20 MG INJ IV (12:13)
[2018-09-28] MEDS: NYSTATIN 30 GM POWDER BTL TOP ×2 (17:42→20:27)
[2018-09-28] MEDS: PHENYLephrine 80 MG in DEXTROSE 5% 492 ML IV (18:21)
[2018-09-28] MEDS: HYDROCODONE/APAP (5/325) TAB PO (20:26)
[2018-09-29] MEDS: VANCOMYCIN HCL 250 MG/5ML POSYG PO ×4 (03:49→17:12)
[2018-09-29] MEDS: metroNIDAZOLE 500 MG/NS (PMX) 100 ML IVPB ×3 (05:42→22:15)
[2018-09-29] MEDS: SOD CHLORIDE 0.9% 1,000 ML IV (05:42)
[2018-09-29] MEDS: LANSOPRAZOLE 30 MG CAP GTB (05:42)
[2018-09-29 05:43] LABS: ADD MAN DIFF? NO
[2018-09-29] MEDS: LEVALBUTEROL (NEB) 0.63 MG/3 ML AMP NEB (05:49)
[2018-09-29 05:51] LABS: WHITE BLOOD COUNT 13.1 10^3/ul (4.8-10.8)
[2018-09-29 05:51] LABS: BASOPHILS % 0.2 % (0.0-2.0); EOSINOPHILS # 0.1 10^3/ul (0.0-0.5); EOSINOPHILS % 1.1 % (0.0-7.0); HEMATOCRIT 24.8 % (37.0-47.0); HEMOGLOBIN 7.9 g/dl (12.0-16.0); LYMPHOCYTES # 0.6 10^3/ul (0.8-2.9); LYMPHOCYTES % 4.9 % (15.0-51.0); MEAN CORPUSCULAR HEMOGLOBIN 27.1 pg (29.0-33.0); MEAN CORPUSCULAR HGB CONC 31.9 g/dl (32.0-37.0); MEAN CORPUSCULAR VOLUME 85.2 fl (82.0-101.0); MEAN PLATELET VOLUME 9.8 fl (7.4-10.4); MONOCYTE # 0.3 10^3/ul (0.3-0.9); MONOCYTES % 2.3 % (0.0-11.0); NEUTROPHIL # 11.8 10^3/ul (1.6-7.5); NEUTROPHILS % 90.4 % (39.0-77.0); PLATELET COUNT 188 10^3/UL (140-415); RED BLOOD COUNT 2.91 10^6/ul (4.20-5.40); RED CELL DISTRIBUTION WIDTH 16.5 % (11.5-14.5)
[2018-09-29 06:21] LABS: ALANINE AMINOTRANSFERASE 19 IU/L (13-69); ALKALINE PHOSPHATASE 73 IU/L (42-121); ANION GAP 8 (5-13); ASPARTATE AMINO TRANSFERASE 24 IU/L (15-46); BILIRUBIN,INDIRECT 0.2 mg/dl (0-1.1); BILIRUBIN,TOTAL 0.2 mg/dl (0.2-1.3); BLOOD UREA NITROGEN 54 mg/dl (7-20); CARBON DIOXIDE 29 mmol/L (21-31); CHLORIDE 100 mmol/L (97-110); CREATININE 1.22 mg/dl (0.44-1.00); GLUCOSE 103 mg/dl (70-220); POTASSIUM 3.6 mmol/L (3.5-5.1); SODIUM 137 mmol/L (135-144); TOTAL PROTEIN 4.2 g/dl (6.1-8.1)
[2018-09-29 06:26] LABS: MAGNESIUM 2.1 mg/dl (1.7-2.5)
[2018-09-29 07:34] LABS: AADO2 Arterial 187.8 mmHg (7.0-24.0); Allen Test ACCEPTAB; Arterial Base Excess 4.6 mmol/L (-3.0-3); Arterial Blood Gas Oxygen Sat 92.5 mmHG (95.0-100.0); Arterial COHb 0.3 % (0.0-3.0); Arterial Fraction of Oxyhgb 91.9 % (93.0-99.0); Arterial HCO3 27.2 mmol/L (22.0-26.0); Arterial MetHb 0.3 % (0.0-1.5); Arterial pCO2 32.7 mmhg (35-45); MODE VENT - AC; Site Right Radial
[2018-09-29] MEDS: LEVOTHYROXINE 100 MCG TAB PO (07:45)
[2018-09-29] MEDS: FUROSEMIDE 20 MG INJ IV ×2 (07:46→17:12)
[2018-09-29] MEDS: POTASSIUM CHLORIDE 20 MEQ POWDER FOR ORAL SOLN NGT (08:40)
[2018-09-29] MEDS: ACETAMINOPHEN 325 MG TAB PO (08:41)
[2018-09-29] MEDS: MAGNESIUM OXIDE 400 MG TAB PO (08:41)
[2018-09-29] MEDS: CALCIUM/VITAMIN D (500/200) TAB PO (08:42)
[2018-09-29] MEDS: FERROUS SULFATE (EC) 325 MG TAB PO ×2 (08:42→21:14)
[2018-09-29] MEDS: AMIODARONE 200 MG TAB PO ×2 (08:42→21:13)
[2018-09-29] MEDS: MULTIVITAMINS/MINERALS TAB PO (08:42)
[2018-09-29] MEDS: GABAPENTIN 300 MG CAP PO ×3 (08:42→21:14)
[2018-09-29] MEDS: ASCORBIC ACID 500 MG TAB PO ×2 (08:42→21:14)
[2018-09-29] MEDS: LINEZOLID 600 MG/D5W (PMX) 300 ML IVPB ×2 (08:43→21:13)
[2018-09-29] MEDS: NYSTATIN 30 GM POWDER BTL TOP ×2 (08:45→21:14)
[2018-09-29 11:15] LABS: INR 2.97; PROTIME 31.8 Sec (11.9-14.9); PT RATIO 2.5
[2018-09-29] MEDS: PROPOFOL 100 ML IV ×2 (12:15→22:00)
[2018-09-29] MEDS: ERTAPENEM SODIUM 0.5 GM in SOD CHLORIDE 0.9% 100 ML IVPB (12:16)
[2018-09-29] MEDS: CASPOFUNGIN 70 MG in SOD CHLORIDE 0.9% 250 ML IVPB (15:31)
[2018-09-30] MEDS: VANCOMYCIN HCL 250 MG/5ML POSYG PO ×4 (01:16→17:08)
[2018-09-30 04:34] LABS: ADD MAN DIFF? NO
[2018-09-30 04:36] LABS: ABNORMAL IP MESSAGE 1; BASOPHILS % 0.1 % (0.0-2.0); EOSINOPHILS # 0.2 10^3/ul (0.0-0.5); EOSINOPHILS % 2.2 % (0.0-7.0); HEMATOCRIT 23.4 % (37.0-47.0); HEMOGLOBIN 7.5 g/dl (12.0-16.0); LYMPHOCYTES # 0.5 10^3/ul (0.8-2.9); MEAN CORPUSCULAR HEMOGLOBIN 27.8 pg (29.0-33.0); MEAN CORPUSCULAR HGB CONC 32.1 g/dl (32.0-37.0); MEAN CORPUSCULAR VOLUME 86.7 fl (82.0-101.0); MEAN PLATELET VOLUME 9.1 fl (7.4-10.4); MONOCYTE # 0.2 10^3/ul (0.3-0.9); MONOCYTES % 2.4 % (0.0-11.0); NEUTROPHIL # 8.8 10^3/ul (1.6-7.5); NEUTROPHILS % 89.5 % (39.0-77.0); PLATELET COUNT 144 10^3/UL (140-415); RED CELL DISTRIBUTION WIDTH 16.8 % (11.5-14.5)
[2018-09-30 04:36] LABS: WHITE BLOOD COUNT 9.8 10^3/ul (4.8-10.8)
[2018-09-30 04:55] LABS: PHOSPHORUS 2.8 mg/dl (2.5-4.9)
[2018-09-30 04:55] LABS: INR 2.29; MAGNESIUM 1.8 mg/dl (1.7-2.5); PROTIME 25.8 Sec (11.9-14.9)
[2018-09-30 04:57] LABS: ALANINE AMINOTRANSFERASE 23 IU/L (13-69); ALKALINE PHOSPHATASE 79 IU/L (42-121); ANION GAP 5 (5-13); ASPARTATE AMINO TRANSFERASE 16 IU/L (15-46); BILIRUBIN,INDIRECT 0.2 mg/dl (0-1.1); BILIRUBIN,TOTAL 0.2 mg/dl (0.2-1.3); BLOOD UREA NITROGEN 42 mg/dl (7-20); CALCIUM 7.1 mg/dl (8.4-10.2); CARBON DIOXIDE 33 mmol/L (21-31); CHLORIDE 100 mmol/L (97-110); CREATININE 1.18 mg/dl (0.44-1.00); GLUCOSE 102 mg/dl (70-220); POTASSIUM 3.6 mmol/L (3.5-5.1); SODIUM 138 mmol/L (135-144); TOTAL PROTEIN 4.2 g/dl (6.1-8.1)
[2018-09-30 05:21] LABS: POSITIVE DIFF @See below
[2018-09-30] MEDS: FUROSEMIDE 20 MG INJ IV ×2 (05:45→17:09)
[2018-09-30] MEDS: LANSOPRAZOLE 30 MG CAP GTB (05:45)
[2018-09-30] MEDS: metroNIDAZOLE 500 MG/NS (PMX) 100 ML IVPB ×3 (05:46→21:22)
[2018-09-30] MEDS: GABAPENTIN 300 MG CAP PO ×3 (09:14→21:21)
[2018-09-30] MEDS: MAGNESIUM OXIDE 400 MG TAB PO (09:14)
[2018-09-30] MEDS: MULTIVITAMINS/MINERALS TAB PO (09:14)
[2018-09-30] MEDS: ASCORBIC ACID 500 MG TAB PO ×2 (09:14→21:21)
[2018-09-30] MEDS: FERROUS SULFATE (EC) 325 MG TAB PO ×2 (09:14→21:00)
[2018-09-30] MEDS: LEVOTHYROXINE 100 MCG TAB PO (09:14)
[2018-09-30] MEDS: AMIODARONE 200 MG TAB PO ×2 (09:14→21:21)
[2018-09-30] MEDS: CALCIUM/VITAMIN D (500/200) TAB PO (09:15)
[2018-09-30] MEDS: LINEZOLID 600 MG/D5W (PMX) 300 ML IVPB ×2 (09:15→21:22)
[2018-09-30] MEDS: NYSTATIN 30 GM POWDER BTL TOP ×2 (09:19→21:29)
[2018-09-30] MEDS: PROPOFOL 100 ML IV ×2 (10:00→21:29)
[2018-09-30 11:11] LABS: AADO2 Arterial 159.4 mmHg (7.0-24.0); Allen Test ACCEPTAB; Arterial Blood Gas Oxygen Sat 95.7 mmHG (95.0-100.0); Arterial COHb 0 % (0.0-3.0); Arterial Fraction of Oxyhgb 95.5 % (93.0-99.0); Arterial HCO3 33.8 mmol/L (22.0-26.0); Arterial MetHb 0.2 % (0.0-1.5); Arterial Total Hemglobin 9.7 g/dl (12.0-18.0); Arterial pCO2 42.4 mmhg (35-45); Blood Gas PS 10; MODE VENT - CPAP; Site Left Radial
[2018-09-30] MEDS: ACETAMINOPHEN 325 MG TAB PO (12:13)
[2018-09-30 12:56] LABS: IMMEDIATE SPIN CROSSMATCH 1 1
[2018-09-30] MEDS: SOD CHLORIDE 0.9% 250 ML IV* (13:00)
[2018-09-30] MEDS: ERTAPENEM SODIUM 0.5 GM in SOD CHLORIDE 0.9% 100 ML IVPB (13:39)
[2018-09-30] MEDS: CASPOFUNGIN 50 MG in SOD CHLORIDE 0.9% 250 ML IVPB (15:21)
[2018-09-30] MEDS: LEVALBUTEROL (NEB) 0.63 MG/3 ML AMP HHN (20:20)
[2018-09-30] MEDS: ACETYLCYSTEINE 20% 4 ML VIAL NEB (20:20)
[2018-09-30 20:29] LABS: OCCULT BLOOD STOOL NEGATIVE (NEGATIVE)
[2018-10-01] MEDS: VANCOMYCIN HCL 250 MG/5ML POSYG PO ×4 (00:10→17:06)
[2018-10-01] MEDS: ACETYLCYSTEINE 20% 4 ML VIAL NEB ×4 (02:03→21:08)
[2018-10-01] MEDS: LEVALBUTEROL (NEB) 0.63 MG/3 ML AMP HHN ×4 (02:03→21:09)
[2018-10-01] MEDS: HYDROCODONE/APAP (5/325) TAB PO ×2 (03:03→09:16)
[2018-10-01 05:10] LABS: ADD MAN DIFF? NO
[2018-10-01 05:17] LABS: BASOPHILS % 0.1 % (0.0-2.0); EOSINOPHILS # 0.2 10^3/ul (0.0-0.5); EOSINOPHILS % 2.3 % (0.0-7.0); HEMATOCRIT 29.6 % (37.0-47.0); HEMOGLOBIN 9.1 g/dl (12.0-16.0); LYMPHOCYTES # 0.6 10^3/ul (0.8-2.9); LYMPHOCYTES % 6.7 % (15.0-51.0); MEAN CORPUSCULAR HEMOGLOBIN 27.8 pg (29.0-33.0); MEAN CORPUSCULAR HGB CONC 30.7 g/dl (32.0-37.0); MEAN CORPUSCULAR VOLUME 90.5 fl (82.0-101.0); MEAN PLATELET VOLUME 9.7 fl (7.4-10.4); MONOCYTE # 0.3 10^3/ul (0.3-0.9); MONOCYTES % 3.2 % (0.0-11.0); NEUTROPHIL # 8.2 10^3/ul (1.6-7.5); PLATELET COUNT 134 10^3/UL (140-415); RED BLOOD COUNT 3.27 10^6/ul (4.20-5.40); RED CELL DISTRIBUTION WIDTH 16.2 % (11.5-14.5)
[2018-10-01 05:17] LABS: WHITE BLOOD COUNT 9.4 10^3/ul (4.8-10.8)
[2018-10-01 05:35] LABS: INR 1.58; PROTIME 19.2 Sec (11.9-14.9); PT RATIO 1.5
[2018-10-01 05:40] LABS: PHOSPHORUS 3.4 mg/dl (2.5-4.9)
[2018-10-01 05:40] LABS: MAGNESIUM 1.5 mg/dl (1.7-2.5)
[2018-10-01 05:43] LABS: ALANINE AMINOTRANSFERASE 21 IU/L (13-69); ALBUMIN 2.6 g/dl (3.3-4.9); ALBUMIN/GLOBULIN RATIO 1.13; ALKALINE PHOSPHATASE 87 IU/L (42-121); ANION GAP 7 (5-13); ASPARTATE AMINO TRANSFERASE 21 IU/L (15-46); BLOOD UREA NITROGEN 37 mg/dl (7-20); CALCIUM 7.6 mg/dl (8.4-10.2); CARBON DIOXIDE 36 mmol/L (21-31); CHLORIDE 96 mmol/L (97-110); CREATININE 1.09 mg/dl (0.44-1.00); GLUCOSE 108 mg/dl (70-220); POTASSIUM 3.5 mmol/L (3.5-5.1); SODIUM 139 mmol/L (135-144); TOTAL PROTEIN 4.9 g/dl (6.1-8.1)
[2018-10-01] MEDS: FUROSEMIDE 20 MG INJ IV (06:30)
[2018-10-01] MEDS: LANSOPRAZOLE 30 MG CAP GTB (06:30)
[2018-10-01] MEDS: LEVOTHYROXINE 100 MCG TAB PO (06:30)
[2018-10-01] MEDS: metroNIDAZOLE 500 MG/NS (PMX) 100 ML IVPB ×3 (06:30→21:36)
[2018-10-01] MEDS: ACETAZOLAMIDE 500 MG INJ IV (09:13)
[2018-10-01] MEDS: CALCIUM/VITAMIN D (500/200) TAB PO (09:13)
[2018-10-01] MEDS: LINEZOLID 600 MG/D5W (PMX) 300 ML IVPB ×2 (09:13→21:28)
[2018-10-01] MEDS: POTASSIUM CHLORIDE 20 MEQ POWDER FOR ORAL SOLN NGT (09:13)
[2018-10-01] MEDS: MAGNESIUM OXIDE 400 MG TAB PO (09:14)
[2018-10-01] MEDS: AMIODARONE 200 MG TAB PO ×2 (09:14→21:35)
[2018-10-01] MEDS: MULTIVITAMINS/MINERALS TAB PO (09:15)
[2018-10-01] MEDS: ASCORBIC ACID 500 MG TAB PO ×2 (09:15→21:36)
[2018-10-01] MEDS: FERROUS SULFATE (EC) 325 MG TAB PO ×2 (09:15→21:35)
[2018-10-01] MEDS: GABAPENTIN 300 MG CAP PO ×3 (09:15→21:36)
[2018-10-01] MEDS: PROPOFOL 100 ML IV (09:47)
[2018-10-01] MEDS: MAGNESIUM SULFATE 2 GM/50 ML 50 ML IVPB (09:55)
[2018-10-01] MEDS: NYSTATIN 30 GM POWDER BTL TOP ×2 (09:56→21:36)
[2018-10-01] MEDS: ERTAPENEM SODIUM 0.5 GM in SOD CHLORIDE 0.9% 100 ML IVPB (12:46)
[2018-10-01] MEDS: WARFARIN 2.5 MG TAB PO (17:06)
[2018-10-01] MEDS: CASPOFUNGIN 50 MG in SOD CHLORIDE 0.9% 250 ML IVPB (17:06)
[2018-10-02] MEDS: LEVALBUTEROL (NEB) 0.63 MG/3 ML AMP HHN ×4 (01:24→20:00)
[2018-10-02] MEDS: ACETYLCYSTEINE 20% 4 ML VIAL NEB ×3 (01:24→20:00)
[2018-10-02] MEDS: VANCOMYCIN HCL 250 MG/5ML POSYG PO ×4 (01:27→17:25)
[2018-10-02] MEDS: LANSOPRAZOLE 30 MG CAP GTB (06:06)
[2018-10-02] MEDS: metroNIDAZOLE 500 MG/NS (PMX) 100 ML IVPB ×3 (06:07→22:23)
[2018-10-02 06:58] LABS: ADD MAN DIFF? NO
[2018-10-02 07:07] LABS: WHITE BLOOD COUNT 8.5 10^3/ul (4.8-10.8)
[2018-10-02 07:07] LABS: BASOPHILS % 0.1 % (0.0-2.0); EOSINOPHILS # 0.1 10^3/ul (0.0-0.5); EOSINOPHILS % 1.7 % (0.0-7.0); HEMATOCRIT 28.4 % (37.0-47.0); HEMOGLOBIN 8.6 g/dl (12.0-16.0); LYMPHOCYTES # 0.7 10^3/ul (0.8-2.9); LYMPHOCYTES % 8.1 % (15.0-51.0); MEAN CORPUSCULAR HEMOGLOBIN 27.7 pg (29.0-33.0); MEAN CORPUSCULAR HGB CONC 30.3 g/dl (32.0-37.0); MEAN CORPUSCULAR VOLUME 91.6 fl (82.0-101.0); MEAN PLATELET VOLUME 10.4 fl (7.4-10.4); MONOCYTE # 0.3 10^3/ul (0.3-0.9); NEUTROPHIL # 7.2 10^3/ul (1.6-7.5); NEUTROPHILS % 85.4 % (39.0-77.0); PLATELET COUNT 105 10^3/UL (140-415); RED CELL DISTRIBUTION WIDTH 16.6 % (11.5-14.5)
[2018-10-02 07:23] LABS: INR 1.64; PROTIME 19.8 Sec (11.9-14.9); PT RATIO 1.5
[2018-10-02 07:49] LABS: ANION GAP 6 (5-13); BLOOD UREA NITROGEN 34 mg/dl (7-20); CALCIUM 7.7 mg/dl (8.4-10.2); CARBON DIOXIDE 34 mmol/L (21-31); CHLORIDE 99 mmol/L (97-110); CREATININE 1.02 mg/dl (0.44-1.00); GLUCOSE 107 mg/dl (70-220); MAGNESIUM 1.7 mg/dl (1.7-2.5); PHOSPHORUS 4.1 mg/dl (2.5-4.9); SODIUM 139 mmol/L (135-144)
[2018-10-02] MEDS: LINEZOLID 600 MG/D5W (PMX) 300 ML IVPB (08:17)
[2018-10-02] MEDS: LEVOTHYROXINE 100 MCG TAB PO (08:19)
[2018-10-02] MEDS: GABAPENTIN 300 MG CAP PO ×3 (08:19→22:27)
[2018-10-02] MEDS: ASCORBIC ACID 500 MG TAB PO ×2 (08:19→22:26)
[2018-10-02] MEDS: CALCIUM/VITAMIN D (500/200) TAB PO (08:20)
[2018-10-02] MEDS: FERROUS SULFATE (EC) 325 MG TAB PO ×2 (08:20→22:27)
[2018-10-02] MEDS: ACETAZOLAMIDE 500 MG INJ IV (08:21)
[2018-10-02] MEDS: AMIODARONE 200 MG TAB PO ×2 (08:21→22:28)
[2018-10-02] MEDS: MULTIVITAMINS/MINERALS TAB PO (09:00)
[2018-10-02] MEDS: NYSTATIN 30 GM POWDER BTL TOP ×2 (10:10→22:45)
[2018-10-02] MEDS: HYDROCODONE/APAP (5/325) TAB PO (10:11)
[2018-10-02] MEDS: MAGNESIUM OXIDE 400 MG TAB PO (10:11)
[2018-10-02 11:50] LABS: AADO2 Arterial 590.9 mmHg (7.0-24.0); Allen Test ACCEPTAB; Arterial Base Excess 2.4 mmol/L (-3.0-3); Arterial Blood Gas Oxygen Sat 91.3 mmHG (95.0-100.0); Arterial COHb 0.3 % (0.0-3.0); Arterial Fraction of Oxyhgb 90.8 % (93.0-99.0); Arterial MetHb 0.2 % (0.0-1.5); Arterial Total Hemglobin 11.4 g/dl (12.0-18.0); Arterial pCO2 54.9 mmhg (35-45); MODE MASK - NRB; Site Left Radial
[2018-10-02] MEDS: ERTAPENEM SODIUM 0.5 GM in SOD CHLORIDE 0.9% 100 ML IVPB (12:00)
[2018-10-02] MEDS: CASPOFUNGIN 50 MG in SOD CHLORIDE 0.9% 250 ML IVPB (16:09)
[2018-10-02] MEDS: WARFARIN 2.5 MG TAB PO (17:25)
[2018-10-02] MEDS: VANCOMYCIN HCL 250 MG/5ML POSYG NGT (22:51)
[2018-10-03] MEDS: LEVALBUTEROL (NEB) 0.63 MG/3 ML AMP HHN ×4 (01:28→20:49)
[2018-10-03] MEDS: ACETYLCYSTEINE 20% 4 ML VIAL NEB ×4 (01:28→20:49)
[2018-10-03] MEDS: ACETAMINOPHEN 650MG/20.3ML CUP NGT (02:24)
[2018-10-03] MEDS: metroNIDAZOLE 500 MG/NS (PMX) 100 ML IVPB ×3 (04:54→21:16)
[2018-10-03] MEDS: LANSOPRAZOLE 30 MG CAP GTB (04:55)
[2018-10-03] MEDS: VANCOMYCIN HCL 250 MG/5ML POSYG NGT ×3 (04:56→21:16)
[2018-10-03] MEDS: LEVOTHYROXINE 100 MCG TAB PO (05:49)
[2018-10-03 06:11] LABS: ADD MAN DIFF? NO
[2018-10-03 06:15] LABS: ABNORMAL IP MESSAGE 1; BASOPHILS % 0.2 % (0.0-2.0); EOSINOPHILS # 0.1 10^3/ul (0.0-0.5); EOSINOPHILS % 1.6 % (0.0-7.0); HEMATOCRIT 30.1 % (37.0-47.0); HEMOGLOBIN 8.7 g/dl (12.0-16.0); LYMPHOCYTES % 11.4 % (15.0-51.0); MEAN CORPUSCULAR HEMOGLOBIN 27.7 pg (29.0-33.0); MEAN CORPUSCULAR HGB CONC 28.9 g/dl (32.0-37.0); MEAN CORPUSCULAR VOLUME 95.9 fl (82.0-101.0); MEAN PLATELET VOLUME 10.6 fl (7.4-10.4); MONOCYTE # 0.4 10^3/ul (0.3-0.9); MONOCYTES % 4.3 % (0.0-11.0); NEUTROPHIL # 7.2 10^3/ul (1.6-7.5); NEUTROPHILS % 81.8 % (39.0-77.0); PLATELET COUNT 96 10^3/UL (140-415); RED BLOOD COUNT 3.14 10^6/ul (4.20-5.40); RED CELL DISTRIBUTION WIDTH 16.6 % (11.5-14.5)
[2018-10-03 06:15] LABS: WHITE BLOOD COUNT 8.8 10^3/ul (4.8-10.8)
[2018-10-03 06:23] LABS: POSITIVE DIFF @See below
[2018-10-03 06:35] LABS: INR 1.68; PROTIME 20.1 Sec (11.9-14.9); PT RATIO 1.6
[2018-10-03 06:43] LABS: ANION GAP 6 (5-13); BLOOD UREA NITROGEN 37 mg/dl (7-20); CALCIUM 8.1 mg/dl (8.4-10.2); CARBON DIOXIDE 35 mmol/L (21-31); CHLORIDE 98 mmol/L (97-110); CREATININE 1.18 mg/dl (0.44-1.00); GLUCOSE 100 mg/dl (70-220); MAGNESIUM 1.8 mg/dl (1.7-2.5); PHOSPHORUS 5.4 mg/dl (2.5-4.9); POTASSIUM 4.3 mmol/L (3.5-5.1); SODIUM 139 mmol/L (135-144)
[2018-10-03] MEDS: MAGNESIUM OXIDE 400 MG TAB PO (09:13)
[2018-10-03] MEDS: AMIODARONE 200 MG TAB PO ×2 (09:14→21:17)
[2018-10-03] MEDS: FERROUS SULFATE 60 MG/ML 5ML CUP NGT ×2 (09:15→21:18)
[2018-10-03] MEDS: CALCIUM/VITAMIN D (500/200) TAB PO (09:17)
[2018-10-03] MEDS: GABAPENTIN 300 MG CAP PO ×3 (09:17→21:18)
[2018-10-03] MEDS: FUROSEMIDE 20 MG INJ IV (09:17)
[2018-10-03] MEDS: NYSTATIN 30 GM POWDER BTL TOP ×2 (09:18→21:18)
[2018-10-03] MEDS: ASCORBIC ACID 500 MG TAB PO ×2 (09:18→21:18)
[2018-10-03] MEDS: ACETAZOLAMIDE 500 MG INJ IV ×2 (09:18→10:43)
[2018-10-03 11:41] LABS: AADO2 Arterial 184.9 mmHg (7.0-24.0); Allen Test ACCEPTAB; Arterial Base Excess 8.4 mmol/L (-3.0-3); Arterial Blood Gas Oxygen Sat 97.2 mmHG (95.0-100.0); Arterial COHb 0.3 % (0.0-3.0); Arterial Fraction of Oxyhgb 96.6 % (93.0-99.0); Arterial HCO3 37.3 mmol/L (22.0-26.0); Arterial MetHb 0.3 % (0.0-1.5); Arterial Total Hemglobin 10.6 g/dl (12.0-18.0); Arterial pCO2 80.2 mmhg (35-45); MODE MASK - SIMPLE; Site Left Radial
[2018-10-03] MEDS: MULTIVITAMINS 30 ML CUP NGT (12:06)
[2018-10-03] MEDS: ERTAPENEM SODIUM 0.5 GM in SOD CHLORIDE 0.9% 100 ML IVPB (12:15)
[2018-10-03] MEDS: CASPOFUNGIN 50 MG in SOD CHLORIDE 0.9% 250 ML IVPB (16:45)
[2018-10-03] MEDS: WARFARIN 2.5 MG TAB PO (16:59)
[2018-10-04] MEDS: ACETYLCYSTEINE 20% 4 ML VIAL NEB ×4 (02:18→20:33)
[2018-10-04] MEDS: LEVALBUTEROL (NEB) 0.63 MG/3 ML AMP HHN ×4 (02:18→20:33)
[2018-10-04] MEDS: metroNIDAZOLE 500 MG/NS (PMX) 100 ML IVPB ×3 (06:54→21:31)
[2018-10-04] MEDS: VANCOMYCIN HCL 250 MG/5ML POSYG NGT ×3 (06:54→21:30)
[2018-10-04] MEDS: LEVOTHYROXINE 100 MCG TAB PO (06:54)
[2018-10-04] MEDS: LANSOPRAZOLE 30 MG CAP GTB (06:54)
[2018-10-04 08:25] LABS: ADD MAN DIFF? NO
[2018-10-04 08:32] LABS: ABNORMAL IP MESSAGE 1; BASOPHILS % 0.2 % (0.0-2.0); EOSINOPHILS # 0.1 10^3/ul (0.0-0.5); EOSINOPHILS % 1.6 % (0.0-7.0); HEMATOCRIT 29.9 % (37.0-47.0); HEMOGLOBIN 8.6 g/dl (12.0-16.0); LYMPHOCYTES # 0.6 10^3/ul (0.8-2.9); LYMPHOCYTES % 7.7 % (15.0-51.0); MEAN CORPUSCULAR HEMOGLOBIN 27.5 pg (29.0-33.0); MEAN CORPUSCULAR HGB CONC 28.8 g/dl (32.0-37.0); MEAN CORPUSCULAR VOLUME 95.5 fl (82.0-101.0); MONOCYTE # 0.6 10^3/ul (0.3-0.9); MONOCYTES % 7.5 % (0.0-11.0); NEUTROPHIL # 6.8 10^3/ul (1.6-7.5); NEUTROPHILS % 82.5 % (39.0-77.0); PLATELET COUNT 93 10^3/UL (140-415); RED BLOOD COUNT 3.13 10^6/ul (4.20-5.40); RED CELL DISTRIBUTION WIDTH 16.5 % (11.5-14.5)
[2018-10-04 08:32] LABS: WHITE BLOOD COUNT 8.3 10^3/ul (4.8-10.8)
[2018-10-04 08:42] LABS: POSITIVE DIFF @See below
[2018-10-04 08:55] LABS: ANION GAP 6 (5-13); BLOOD UREA NITROGEN 38 mg/dl (7-20); CALCIUM 8.2 mg/dl (8.4-10.2); CARBON DIOXIDE 34 mmol/L (21-31); CHLORIDE 101 mmol/L (97-110); CREATININE 0.91 mg/dl (0.44-1.00); GLUCOSE 114 mg/dl (70-220); SODIUM 141 mmol/L (135-144)
[2018-10-04 08:59] LABS: PHOSPHORUS 3.9 mg/dl (2.5-4.9)
[2018-10-04 08:59] LABS: MAGNESIUM 1.6 mg/dl (1.7-2.5)
[2018-10-04] MEDS: FUROSEMIDE 20 MG INJ IV ×2 (09:00→17:31)
[2018-10-04] MEDS: AMIODARONE 200 MG TAB PO ×2 (09:00→21:32)
[2018-10-04] MEDS: MAGNESIUM OXIDE 400 MG TAB PO (09:26)
[2018-10-04] MEDS: ASCORBIC ACID 500 MG TAB PO ×2 (09:26→21:30)
[2018-10-04] MEDS: GABAPENTIN 300 MG CAP PO ×3 (09:26→21:30)
[2018-10-04] MEDS: CALCIUM/VITAMIN D (500/200) TAB PO (09:29)
[2018-10-04] MEDS: FERROUS SULFATE 60 MG/ML 5ML CUP NGT ×2 (09:29→21:28)
[2018-10-04] MEDS: MULTIVITAMINS 30 ML CUP NGT (09:30)
[2018-10-04] MEDS: NYSTATIN 30 GM POWDER BTL TOP ×2 (09:36→21:30)
[2018-10-04] MEDS: CASPOFUNGIN 50 MG in SOD CHLORIDE 0.9% 250 ML IVPB (15:35)
[2018-10-04 16:27] LABS: ADD UMIC YES; UR ASCORBIC ACID 40 mg/dL (NEGATIVE); UR BACTERIA FEW /HPF (NONE SEEN); UR BILIRUBIN (Dip) NEGATIVE (NEGATIVE); UR BLOOD (Dip) NEGATIVE (NEGATIVE); UR BUDDING YEAST MODERATE /HPF (NONE SEEN); UR CLARITY CLOUDY (CLEAR); UR COLOR YELLOW (YELLOW); UR GLUCOSE (Dip) NEGATIVE (NEGATIVE); UR KETONES (Dip) NEGATIVE (NEGATIVE); UR LEUKOCYTE ESTERASE (Dip) 2+ Leu/ul (NEGATIVE); UR NITRITE (Dip) NEGATIVE (NEGATIVE); UR NONSQUAMOUS EPITHELIAL CELL 3 /HPF (NONE SEEN); UR RBC 6 /HPF (0-5); UR SPECIFIC GRAVITY (Dip) 1.013 (1.003-1.030); UR SQUAMOUS EPITHELIAL CELL MODERATE /HPF (FEW); UR TOTAL PROTEIN (Dip) NEGATIVE (NEGATIVE); UR UROBILINOGEN (Dip) NEGATIVE (NEGATIVE); UR WBC 26 /HPF (0-5)
[2018-10-04] MEDS: WARFARIN 5 MG TAB PO (17:30)
[2018-10-04] MEDS: ACETAMINOPHEN 650MG/20.3ML CUP NGT (21:28)
[2018-10-05] MEDS: ACETYLCYSTEINE 20% 4 ML VIAL NEB ×4 (03:00→19:51)
[2018-10-05] MEDS: LEVALBUTEROL (NEB) 0.63 MG/3 ML AMP HHN ×4 (03:00→19:50)
[2018-10-05] MEDS: FUROSEMIDE 20 MG INJ IV (06:00)
[2018-10-05] MEDS ORDERED: BENZOCAINE 10% 7 GM GEL MM (06:00)
[2018-10-05] MEDS: LANSOPRAZOLE 30 MG CAP GTB (06:10)
[2018-10-05] MEDS: LEVOTHYROXINE 100 MCG TAB PO (06:10)
[2018-10-05] MEDS: metroNIDAZOLE 500 MG/NS (PMX) 100 ML IVPB ×2 (06:10→13:23)
[2018-10-05] MEDS: VANCOMYCIN HCL 250 MG/5ML POSYG NGT ×2 (06:21→13:23)
[2018-10-05 07:27] LABS: ADD MAN DIFF? NO
[2018-10-05 07:31] LABS: ABNORMAL IP MESSAGE 1; BASOPHILS % 0.1 % (0.0-2.0); EOSINOPHILS # 0.1 10^3/ul (0.0-0.5); HEMATOCRIT 30.8 % (37.0-47.0); HEMOGLOBIN 8.7 g/dl (12.0-16.0); LYMPHOCYTES # 0.6 10^3/ul (0.8-2.9); LYMPHOCYTES % 7.9 % (15.0-51.0); MEAN CORPUSCULAR HEMOGLOBIN 27.7 pg (29.0-33.0); MEAN CORPUSCULAR HGB CONC 28.2 g/dl (32.0-37.0); MEAN CORPUSCULAR VOLUME 98.1 fl (82.0-101.0); MEAN PLATELET VOLUME 11.5 fl (7.4-10.4); MONOCYTES % 14.2 % (0.0-11.0); NEUTROPHIL # 5.3 10^3/ul (1.6-7.5); NEUTROPHILS % 76.2 % (39.0-77.0); PLATELET COUNT 107 10^3/UL (140-415); RED BLOOD COUNT 3.14 10^6/ul (4.20-5.40)
[2018-10-05 07:45] LABS: POSITIVE DIFF @See below
[2018-10-05 07:59] LABS: MAGNESIUM 1.6 mg/dl (1.7-2.5)
[2018-10-05 07:59] LABS: PHOSPHORUS 3.8 mg/dl (2.5-4.9)
[2018-10-05 08:03] LABS: ANION GAP 1 (5-13); BLOOD UREA NITROGEN 35 mg/dl (7-20); CALCIUM 8.3 mg/dl (8.4-10.2); CARBON DIOXIDE 37 mmol/L (21-31); CHLORIDE 102 mmol/L (97-110); GLUCOSE 95 mg/dl (70-220); INR 2.39; POTASSIUM 4.5 mmol/L (3.5-5.1); PROTIME 26.7 Sec (11.9-14.9); PT RATIO 2.1; SODIUM 140 mmol/L (135-144)
[2018-10-05] MEDS: MAGNESIUM OXIDE 400 MG TAB PO (08:33)
[2018-10-05] MEDS: AMIODARONE 200 MG TAB PO ×2 (08:33→20:54)
[2018-10-05] MEDS: GABAPENTIN 300 MG CAP PO ×3 (08:33→20:54)
[2018-10-05] MEDS: ASCORBIC ACID 500 MG TAB PO ×2 (08:33→20:54)
[2018-10-05] MEDS: MULTIVITAMINS 30 ML CUP NGT (08:34)
[2018-10-05] MEDS: CALCIUM/VITAMIN D (500/200) TAB PO (08:34)
[2018-10-05] MEDS: FERROUS SULFATE 60 MG/ML 5ML CUP NGT ×2 (08:34→20:53)
[2018-10-05] MEDS: ACETAZOLAMIDE 500 MG INJ IV (08:35)
[2018-10-05] MEDS: MAGNESIUM SULFATE 2 GM/50 ML 50 ML IVPB (08:55)
[2018-10-05] MEDS: NYSTATIN 30 GM POWDER BTL TOP ×2 (09:06→20:54)
[2018-10-05] MEDS: CASPOFUNGIN 50 MG in SOD CHLORIDE 0.9% 250 ML IVPB (16:26)
[2018-10-05] MEDS: WARFARIN 5 MG TAB PO (16:27)
[2018-10-06] MEDS: ACETYLCYSTEINE 20% 4 ML VIAL NEB ×4 (01:13→19:38)
[2018-10-06] MEDS: LEVALBUTEROL (NEB) 0.63 MG/3 ML AMP HHN ×4 (01:13→19:38)
[2018-10-06] MEDS: ACETAMINOPHEN 650MG/20.3ML CUP NGT (01:14)
[2018-10-06] MEDS: LEVOTHYROXINE 100 MCG TAB PO (06:06)
[2018-10-06] MEDS: LANSOPRAZOLE 30 MG CAP GTB (06:06)
[2018-10-06 07:21] LABS: ADD MAN DIFF? NO
[2018-10-06 07:28] LABS: WHITE BLOOD COUNT 4.8 10^3/ul (4.8-10.8)
[2018-10-06 07:28] LABS: ABNORMAL IP MESSAGE 1; BASOPHILS % 0.2 % (0.0-2.0); EOSINOPHILS # 0.1 10^3/ul (0.0-0.5); HEMATOCRIT 30.9 % (37.0-47.0); HEMOGLOBIN 8.7 g/dl (12.0-16.0); LYMPHOCYTES # 0.7 10^3/ul (0.8-2.9); LYMPHOCYTES % 13.5 % (15.0-51.0); MEAN CORPUSCULAR HEMOGLOBIN 27.7 pg (29.0-33.0); MEAN CORPUSCULAR HGB CONC 28.2 g/dl (32.0-37.0); MEAN CORPUSCULAR VOLUME 98.4 fl (82.0-101.0); MEAN PLATELET VOLUME 11.4 fl (7.4-10.4); MONOCYTE # 0.7 10^3/ul (0.3-0.9); MONOCYTES % 15.4 % (0.0-11.0); NEUTROPHIL # 3.3 10^3/ul (1.6-7.5); NEUTROPHILS % 69.3 % (39.0-77.0); PLATELET COUNT 151 10^3/UL (140-415); RED BLOOD COUNT 3.14 10^6/ul (4.20-5.40)
[2018-10-06 07:35] LABS: POSITIVE DIFF @See below
[2018-10-06 07:48] LABS: PHOSPHORUS 3.3 mg/dl (2.5-4.9)
[2018-10-06 07:50] LABS: ANION GAP 5 (5-13); BLOOD UREA NITROGEN 28 mg/dl (7-20); CALCIUM 8.3 mg/dl (8.4-10.2); CARBON DIOXIDE 35 mmol/L (21-31); CHLORIDE 103 mmol/L (97-110); CREATININE 0.88 mg/dl (0.44-1.00); GLUCOSE 81 mg/dl (70-220); POTASSIUM 4.1 mmol/L (3.5-5.1); PROTIME 37.9 Sec (11.9-14.9); SODIUM 143 mmol/L (135-144)
[2018-10-06] MEDS: ACETAZOLAMIDE 500 MG INJ IV (09:00)
[2018-10-06] MEDS: AMIODARONE 200 MG TAB PO ×2 (09:00→21:00)
[2018-10-06] MEDS: NYSTATIN 30 GM POWDER BTL TOP ×2 (09:00→21:00)
[2018-10-06] MEDS: MULTIVITAMINS 30 ML CUP NGT (09:56)
[2018-10-06] MEDS: ASCORBIC ACID 500 MG TAB PO ×2 (09:56→21:42)
[2018-10-06] MEDS: FERROUS SULFATE 60 MG/ML 5ML CUP NGT ×2 (09:56→21:43)
[2018-10-06] MEDS: GABAPENTIN 300 MG CAP PO ×3 (09:56→21:42)
[2018-10-06] MEDS: CALCIUM/VITAMIN D (500/200) TAB PO (09:56)
[2018-10-06] MEDS: MAGNESIUM OXIDE 400 MG TAB PO (09:56)
[2018-10-06] MEDS: AMIODARONE 900 MG in DEXTROSE 5% 482 ML IV ×3 (12:00→21:42)
[2018-10-06] MEDS: CASPOFUNGIN 50 MG in SOD CHLORIDE 0.9% 250 ML IVPB (13:55)
[2018-10-06] MEDS ORDERED: AMIODARONE 900 MG in DEXTROSE 5% 482 ML IV (18:00)
[2018-10-07] MEDS: ACETYLCYSTEINE 20% 4 ML VIAL NEB ×4 (01:39→19:55)
[2018-10-07] MEDS: LEVALBUTEROL (NEB) 0.63 MG/3 ML AMP HHN ×4 (01:39→19:55)
[2018-10-07 02:10] LABS: AADO2 Arterial 198.9 mmHg (7.0-24.0); Allen Test ACCEPTAB; Arterial Base Excess 2.3 mmol/L (-3.0-3); Arterial Blood Gas Oxygen Sat 97.5 mmHG (95.0-100.0); Arterial COHb 0.4 % (0.0-3.0); Arterial Fraction of Oxyhgb 97.1 % (93.0-99.0); Arterial HCO3 28.4 mmol/L (22.0-26.0); Arterial MetHb 0 % (0.0-1.5); Arterial Total Hemglobin 9.2 g/dl (12.0-18.0); Arterial pCO2 52.2 mmhg (35-45); Blood Gas IEPAP 25/8; Blood Gas PS 17; MODE MASK - BIPAP; Site Right Radial
[2018-10-07] MEDS: LANSOPRAZOLE 30 MG CAP GTB (05:14)
[2018-10-07 05:42] LABS: ADD MAN DIFF? NO
[2018-10-07 05:44] LABS: WHITE BLOOD COUNT 4.2 10^3/ul (4.8-10.8)
[2018-10-07 05:44] LABS: ABNORMAL IP MESSAGE 1; BASOPHILS % 0.2 % (0.0-2.0); EOSINOPHILS # 0.1 10^3/ul (0.0-0.5); EOSINOPHILS % 2.1 % (0.0-7.0); HEMATOCRIT 27.3 % (37.0-47.0); HEMOGLOBIN 7.9 g/dl (12.0-16.0); LYMPHOCYTES # 0.6 10^3/ul (0.8-2.9); LYMPHOCYTES % 13.8 % (15.0-51.0); MEAN CORPUSCULAR HEMOGLOBIN 27.7 pg (29.0-33.0); MEAN CORPUSCULAR HGB CONC 28.9 g/dl (32.0-37.0); MEAN CORPUSCULAR VOLUME 95.8 fl (82.0-101.0); MONOCYTE # 0.6 10^3/ul (0.3-0.9); MONOCYTES % 15.2 % (0.0-11.0); NEUTROPHIL # 2.9 10^3/ul (1.6-7.5); PLATELET COUNT 180 10^3/UL (140-415); RED BLOOD COUNT 2.85 10^6/ul (4.20-5.40); RED CELL DISTRIBUTION WIDTH 15.9 % (11.5-14.5)
[2018-10-07 05:55] LABS: POSITIVE DIFF @See below
[2018-10-07] MEDS: LEVOTHYROXINE 100 MCG TAB PO (06:06)
[2018-10-07 06:09] LABS: ANION GAP 3 (5-13); BLOOD UREA NITROGEN 26 mg/dl (7-20); CALCIUM 8.3 mg/dl (8.4-10.2); CARBON DIOXIDE 34 mmol/L (21-31); CHLORIDE 104 mmol/L (97-110); CREATININE 0.84 mg/dl (0.44-1.00); GLUCOSE 107 mg/dl (70-220); SODIUM 141 mmol/L (135-144)
[2018-10-07] MEDS: MULTIVITAMINS 30 ML CUP NGT (08:13)
[2018-10-07] MEDS: MAGNESIUM OXIDE 400 MG TAB PO (08:13)
[2018-10-07] MEDS: AMIODARONE 200 MG TAB PO ×2 (08:13→22:17)
[2018-10-07] MEDS: GABAPENTIN 300 MG CAP PO ×3 (08:13→22:16)
[2018-10-07] MEDS: FERROUS SULFATE 60 MG/ML 5ML CUP NGT ×2 (08:13→22:16)
[2018-10-07] MEDS: CALCIUM/VITAMIN D (500/200) TAB PO (08:13)
[2018-10-07] MEDS: ASCORBIC ACID 500 MG TAB PO ×2 (08:14→22:17)
[2018-10-07] MEDS: NYSTATIN 30 GM POWDER BTL TOP ×2 (08:14→22:18)
[2018-10-07 12:20] LABS: ADD MAN DIFF? NO
[2018-10-07 12:24] LABS: BASOPHILS % 0.2 % (0.0-2.0); EOSINOPHILS # 0.1 10^3/ul (0.0-0.5); EOSINOPHILS % 2.2 % (0.0-7.0); HEMATOCRIT 27.6 % (37.0-47.0); HEMOGLOBIN 8.1 g/dl (12.0-16.0); LYMPHOCYTES # 0.8 10^3/ul (0.8-2.9); LYMPHOCYTES % 15.1 % (15.0-51.0); MEAN CORPUSCULAR HEMOGLOBIN 27.7 pg (29.0-33.0); MEAN CORPUSCULAR HGB CONC 29.3 g/dl (32.0-37.0); MEAN CORPUSCULAR VOLUME 94.5 fl (82.0-101.0); MEAN PLATELET VOLUME 10.9 fl (7.4-10.4); MONOCYTE # 0.6 10^3/ul (0.3-0.9); MONOCYTES % 12.7 % (0.0-11.0); NEUTROPHIL # 3.5 10^3/ul (1.6-7.5); NEUTROPHILS % 69.2 % (39.0-77.0); PLATELET COUNT 200 10^3/UL (140-415); RED BLOOD COUNT 2.92 10^6/ul (4.20-5.40); RED CELL DISTRIBUTION WIDTH 15.9 % (11.5-14.5)
[2018-10-07] MEDS: VANCOMYCIN HCL 250 MG/5ML POSYG NGT ×2 (15:20→22:00)
[2018-10-07] MEDS: CASPOFUNGIN 50 MG in SOD CHLORIDE 0.9% 250 ML IVPB (15:20)
[2018-10-07] MEDS: FUROSEMIDE 20 MG INJ IV (17:19)
[2018-10-07] MEDS: WARFARIN 3 MG TAB PO (17:20)
[2018-10-08] MEDS: ACETYLCYSTEINE 20% 4 ML VIAL NEB ×4 (01:48→19:21)
[2018-10-08] MEDS: LEVALBUTEROL (NEB) 0.63 MG/3 ML AMP HHN ×4 (01:48→19:21)
[2018-10-08 05:26] LABS: ADD MAN DIFF? NO
[2018-10-08 05:37] LABS: ABNORMAL IP MESSAGE 1; BASOPHILS % 0.2 % (0.0-2.0); EOSINOPHILS # 0.1 10^3/ul (0.0-0.5); EOSINOPHILS % 2.3 % (0.0-7.0); HEMATOCRIT 26.8 % (37.0-47.0); HEMOGLOBIN 7.6 g/dl (12.0-16.0); LYMPHOCYTES # 0.7 10^3/ul (0.8-2.9); LYMPHOCYTES % 16.7 % (15.0-51.0); MEAN CORPUSCULAR HEMOGLOBIN 26.9 pg (29.0-33.0); MEAN CORPUSCULAR HGB CONC 28.4 g/dl (32.0-37.0); MEAN CORPUSCULAR VOLUME 94.7 fl (82.0-101.0); MEAN PLATELET VOLUME 10.6 fl (7.4-10.4); MONOCYTE # 0.5 10^3/ul (0.3-0.9); NEUTROPHILS % 69.1 % (39.0-77.0); PLATELET COUNT 219 10^3/UL (140-415); RED BLOOD COUNT 2.83 10^6/ul (4.20-5.40); RED CELL DISTRIBUTION WIDTH 15.9 % (11.5-14.5)
[2018-10-08 05:37] LABS: WHITE BLOOD COUNT 4.4 10^3/ul (4.8-10.8)
[2018-10-08 05:47] LABS: POSITIVE DIFF @See below
[2018-10-08 05:55] LABS: INR 3.42; PROTIME 35.6 Sec (11.9-14.9); PT RATIO 2.8
[2018-10-08] MEDS: FUROSEMIDE 20 MG INJ IV (06:00)
[2018-10-08] MEDS: VANCOMYCIN HCL 250 MG/5ML POSYG NGT (06:07)
[2018-10-08] MEDS: LANSOPRAZOLE 30 MG CAP GTB (06:08)
[2018-10-08] MEDS: LEVOTHYROXINE 100 MCG TAB PO (06:08)
[2018-10-08 06:17] LABS: ANION GAP 5 (5-13); BLOOD UREA NITROGEN 18 mg/dl (7-20); CARBON DIOXIDE 34 mmol/L (21-31); CHLORIDE 104 mmol/L (97-110); CREATININE 0.79 mg/dl (0.44-1.00); GLUCOSE 73 mg/dl (70-220); MAGNESIUM 1.7 mg/dl (1.7-2.5); PHOSPHORUS 2.3 mg/dl (2.5-4.9); POTASSIUM 3.9 mmol/L (3.5-5.1); SODIUM 143 mmol/L (135-144)
[2018-10-08] MEDS: CALCIUM/VITAMIN D (500/200) TAB PO (09:25)
[2018-10-08] MEDS: ASCORBIC ACID 500 MG TAB PO ×2 (09:25→21:17)
[2018-10-08] MEDS: GABAPENTIN 300 MG CAP PO ×3 (09:25→21:17)
[2018-10-08] MEDS: AMIODARONE 200 MG TAB PO ×2 (09:26→21:17)
[2018-10-08] MEDS: NYSTATIN 30 GM POWDER BTL TOP ×2 (09:26→21:18)
[2018-10-08] MEDS: MAGNESIUM SULFATE 2 GM/50 ML 50 ML IVPB (10:29)
[2018-10-08] MEDS: MULTIVITAMINS 30 ML CUP NGT (10:29)
[2018-10-08] MEDS: NEUTRA-PHOS 250 MG PACKET PO (10:29)
[2018-10-09] MEDS: ACETYLCYSTEINE 20% 4 ML VIAL NEB ×4 (01:00→20:04)
[2018-10-09] MEDS: LEVALBUTEROL (NEB) 0.63 MG/3 ML AMP HHN ×4 (01:00→20:04)
[2018-10-09 05:59] LABS: INR 2.73; PROTIME 29.7 Sec (11.9-14.9); PT RATIO 2.3
[2018-10-09] MEDS: LANSOPRAZOLE 30 MG CAP GTB (06:35)
[2018-10-09] MEDS: LEVOTHYROXINE 100 MCG TAB PO (06:35)
[2018-10-09] MEDS: MULTIVITAMINS 30 ML CUP NGT (08:54)
[2018-10-09] MEDS: ASCORBIC ACID 500 MG TAB PO ×2 (08:54→22:09)
[2018-10-09] MEDS: CALCIUM/VITAMIN D (500/200) TAB PO (08:54)
[2018-10-09] MEDS: GABAPENTIN 300 MG CAP PO ×3 (08:54→22:09)
[2018-10-09] MEDS: AMIODARONE 200 MG TAB PO ×2 (08:54→22:09)
[2018-10-09] MEDS: NYSTATIN 30 GM POWDER BTL TOP ×2 (08:55→22:09)
[2018-10-09] MEDS: FUROSEMIDE 40 MG TAB PO (08:55)
[2018-10-09] MEDS: WARFARIN 3 MG TAB PO (18:16)
[2018-10-10] MEDS: LEVALBUTEROL (NEB) 0.63 MG/3 ML AMP HHN ×4 (01:00→20:20)
[2018-10-10] MEDS: ACETYLCYSTEINE 20% 4 ML VIAL NEB ×4 (01:00→20:20)
[2018-10-10 05:59] LABS: INR 1.99; PROTIME 23.1 Sec (11.9-14.9); PT RATIO 1.8
[2018-10-10] MEDS: LEVOTHYROXINE 100 MCG TAB PO (06:23)
[2018-10-10] MEDS: LANSOPRAZOLE 30 MG CAP GTB (06:23)
[2018-10-10] MEDS: MULTIVITAMINS 30 ML CUP NGT (08:17)
[2018-10-10] MEDS: CALCIUM/VITAMIN D (500/200) TAB PO (08:18)
[2018-10-10] MEDS: ASCORBIC ACID 500 MG TAB PO ×2 (08:18→21:42)
[2018-10-10] MEDS: NYSTATIN 30 GM POWDER BTL TOP ×2 (08:19→21:42)
[2018-10-10] MEDS: AMIODARONE 200 MG TAB PO (08:19)
[2018-10-10] MEDS: GABAPENTIN 300 MG CAP PO ×3 (08:19→21:42)
[2018-10-10] MEDS: FUROSEMIDE 40 MG TAB PO (08:19)
[2018-10-10] MEDS: WARFARIN 3 MG TAB PO (17:32)
[2018-10-11] MEDS: LEVALBUTEROL (NEB) 0.63 MG/3 ML AMP HHN ×4 (03:21→19:10)
[2018-10-11] MEDS: ACETYLCYSTEINE 20% 4 ML VIAL NEB ×4 (03:21→19:10)
[2018-10-11 06:09] LABS: ADD MAN DIFF? NO
[2018-10-11 06:18] LABS: ABNORMAL IP MESSAGE 1; BASOPHILS % 0.2 % (0.0-2.0); EOSINOPHILS # 0.1 10^3/ul (0.0-0.5); EOSINOPHILS % 1.5 % (0.0-7.0); HEMATOCRIT 29.5 % (37.0-47.0); HEMOGLOBIN 8.5 g/dl (12.0-16.0); LYMPHOCYTES # 0.6 10^3/ul (0.8-2.9); LYMPHOCYTES % 10.4 % (15.0-51.0); MEAN CORPUSCULAR HEMOGLOBIN 28.1 pg (29.0-33.0); MEAN CORPUSCULAR HGB CONC 28.8 g/dl (32.0-37.0); MEAN CORPUSCULAR VOLUME 97.4 fl (82.0-101.0); MEAN PLATELET VOLUME 10.8 fl (7.4-10.4); MONOCYTE # 0.4 10^3/ul (0.3-0.9); MONOCYTES % 7.5 % (0.0-11.0); NEUTROPHIL # 4.4 10^3/ul (1.6-7.5); NEUTROPHILS % 79.7 % (39.0-77.0); PLATELET COUNT 301 10^3/UL (140-415); RED BLOOD COUNT 3.03 10^6/ul (4.20-5.40); RED CELL DISTRIBUTION WIDTH 16.8 % (11.5-14.5)
[2018-10-11 06:18] LABS: WHITE BLOOD COUNT 5.5 10^3/ul (4.8-10.8)
[2018-10-11 06:31] LABS: POSITIVE DIFF @See below
[2018-10-11] MEDS: LANSOPRAZOLE 30 MG CAP GTB (06:45)
[2018-10-11] MEDS: LEVOTHYROXINE 100 MCG TAB PO (06:45)
[2018-10-11 07:30] LABS: BLOOD UREA NITROGEN 9 mg/dl (7-20); CALCIUM 8.1 mg/dl (8.4-10.2); CHLORIDE 99 mmol/L (97-110); CREATININE 0.73 mg/dl (0.44-1.00); GLUCOSE 88 mg/dl (70-220); MAGNESIUM 1.4 mg/dl (1.7-2.5); PHOSPHORUS 3.8 mg/dl (2.5-4.9); POTASSIUM 4.2 mmol/L (3.5-5.1); SODIUM 142 mmol/L (135-144)
[2018-10-11 07:50] LABS: ANION GAP 6 (5-13); CARBON DIOXIDE 37 mmol/L (21-31)
[2018-10-11] MEDS: CALCIUM/VITAMIN D (500/200) TAB PO (09:38)
[2018-10-11] MEDS: MULTIVITAMINS 30 ML CUP NGT (09:38)
[2018-10-11] MEDS: ASCORBIC ACID 500 MG TAB PO ×2 (09:38→21:26)
[2018-10-11] MEDS: FUROSEMIDE 40 MG TAB PO (09:38)
[2018-10-11] MEDS: AMIODARONE 200 MG TAB PO (09:39)
[2018-10-11] MEDS: NYSTATIN 30 GM POWDER BTL TOP ×2 (09:39→21:27)
[2018-10-11] MEDS: GABAPENTIN 300 MG CAP PO ×3 (09:39→21:26)
[2018-10-11] MEDS: MAGNESIUM SULFATE 2 GM/50 ML 50 ML IVPB (11:16)
[2018-10-11] MEDS: WARFARIN 3 MG TAB PO (18:21)
[2018-10-12] MEDS: LEVALBUTEROL (NEB) 0.63 MG/3 ML AMP HHN ×4 (02:05→19:45)
[2018-10-12] MEDS: ACETYLCYSTEINE 20% 4 ML VIAL NEB ×4 (02:05→19:45)
[2018-10-12 05:33] LABS: INR 2.49; PROTIME 27.6 Sec (11.9-14.9); PT RATIO 2.2
[2018-10-12] MEDS: LEVOTHYROXINE 100 MCG TAB PO (06:10)
[2018-10-12] MEDS: ACETAMINOPHEN 325 MG TAB PO (06:10)
[2018-10-12] MEDS: LANSOPRAZOLE 30 MG CAP GTB (06:11)
[2018-10-12 06:18] LABS: ANION GAP 3 (5-13); BLOOD UREA NITROGEN 10 mg/dl (7-20); CALCIUM 8.3 mg/dl (8.4-10.2); CARBON DIOXIDE 40 mmol/L (21-31); CHLORIDE 96 mmol/L (97-110); CREATININE 0.76 mg/dl (0.44-1.00); GLUCOSE 103 mg/dl (70-220); MAGNESIUM 1.8 mg/dl (1.7-2.5); PHOSPHORUS 4.2 mg/dl (2.5-4.9); SODIUM 139 mmol/L (135-144)
[2018-10-12] MEDS: MULTIVITAMINS 30 ML CUP NGT (09:36)
[2018-10-12] MEDS: CALCIUM/VITAMIN D (500/200) TAB PO (09:39)
[2018-10-12] MEDS: ASCORBIC ACID 500 MG TAB PO ×2 (09:39→20:25)
[2018-10-12] MEDS: NYSTATIN 30 GM POWDER BTL TOP ×2 (09:39→20:27)
[2018-10-12] MEDS: ACETAZOLAMIDE 500 MG INJ IV (09:39)
[2018-10-12] MEDS: FUROSEMIDE 40 MG TAB PO (09:40)
[2018-10-12] MEDS: AMIODARONE 200 MG TAB PO ×2 (09:40→20:26)
[2018-10-12] MEDS: GABAPENTIN 300 MG CAP PO ×3 (09:44→20:25)
[2018-10-12] MEDS: LORAZEPAM 2 MG INJ IV (11:02)
[2018-10-12 11:56] LABS: AADO2 Arterial 545.6 mmHg (7.0-24.0); Allen Test ACCEPTAB; Arterial Base Excess 5.9 mmol/L (-3.0-3); Arterial Blood Gas Oxygen Sat 89.8 mmHG (95.0-100.0); Arterial COHb 0.5 % (0.0-3.0); Arterial Fraction of Oxyhgb 89.1 % (93.0-99.0); Arterial MetHb 0.3 % (0.0-1.5); Arterial Total Hemglobin 11.3 g/dl (12.0-18.0); Arterial pCO2 100.4 mmhg (35-45); MODE MASK - NRB; Site Right Radial
[2018-10-12 12:26] LABS: ADD MAN DIFF? NO
[2018-10-12 12:29] LABS: WHITE BLOOD COUNT 9.2 10^3/ul (4.8-10.8)
[2018-10-12 12:29] LABS: ABNORMAL IP MESSAGE 1; BASOPHILS % 0.3 % (0.0-2.0); EOSINOPHILS # 0.1 10^3/ul (0.0-0.5); EOSINOPHILS % 0.7 % (0.0-7.0); HEMATOCRIT 34.9 % (37.0-47.0); HEMOGLOBIN 9.7 g/dl (12.0-16.0); LYMPHOCYTES # 0.7 10^3/ul (0.8-2.9); LYMPHOCYTES % 7.5 % (15.0-51.0); MEAN CORPUSCULAR HGB CONC 27.8 g/dl (32.0-37.0); MEAN CORPUSCULAR VOLUME 100.6 fl (82.0-101.0); MEAN PLATELET VOLUME 11.2 fl (7.4-10.4); MONOCYTE # 0.5 10^3/ul (0.3-0.9); MONOCYTES % 5.8 % (0.0-11.0); NEUTROPHIL # 7.8 10^3/ul (1.6-7.5); NEUTROPHILS % 84.9 % (39.0-77.0); PLATELET COUNT 400 10^3/UL (140-415); RED BLOOD COUNT 3.47 10^6/ul (4.20-5.40); RED CELL DISTRIBUTION WIDTH 17.4 % (11.5-14.5)
[2018-10-12 12:33] LABS: POSITIVE DIFF @See below
[2018-10-12 12:47] LABS: ANION GAP 5 (5-13); BLOOD UREA NITROGEN 11 mg/dl (7-20); CALCIUM 8.3 mg/dl (8.4-10.2); CARBON DIOXIDE 38 mmol/L (21-31); CHLORIDE 94 mmol/L (97-110); GLUCOSE 145 mg/dl (70-220); POTASSIUM 4.2 mmol/L (3.5-5.1); SODIUM 137 mmol/L (135-144)
[2018-10-12 12:49] LABS: LACTIC ACID 0.9 mmol/L (0.5-2.0)
[2018-10-12 12:59] LABS: TROPONIN-I < 0.012 ng/ml (0.000-0.120)
[2018-10-12 16:32] LABS: AADO2 Arterial 126.6 mmHg (7.0-24.0); Allen Test ACCEPTAB; Arterial Base Excess 13.6 mmol/L (-3.0-3); Arterial Blood Gas Oxygen Sat 94.7 mmHG (95.0-100.0); Arterial COHb 0.6 % (0.0-3.0); Arterial Fraction of Oxyhgb 93.9 % (93.0-99.0); Arterial HCO3 41.4 mmol/L (22.0-26.0); Arterial MetHb 0.2 % (0.0-1.5); Arterial Total Hemglobin 9.9 g/dl (12.0-18.0); Arterial pCO2 74.4 mmhg (35-45); Blood Gas PS 25/8; MODE MASK - BIPAP; Site Right Radial
[2018-10-12] MEDS: WARFARIN 3 MG TAB PO (18:39)
[2018-10-13] MEDS: LEVALBUTEROL (NEB) 0.63 MG/3 ML AMP HHN ×4 (02:12→19:21)
[2018-10-13] MEDS: ACETYLCYSTEINE 20% 4 ML VIAL NEB ×4 (02:13→19:23)
[2018-10-13] MEDS: LANSOPRAZOLE 30 MG CAP GTB (05:37)
[2018-10-13] MEDS: LEVOTHYROXINE 100 MCG TAB PO (05:38)
[2018-10-13 08:33] LABS: ADD MAN DIFF? NO
[2018-10-13 08:34] LABS: WHITE BLOOD COUNT 6.2 10^3/ul (4.8-10.8)
[2018-10-13 08:34] LABS: ABNORMAL IP MESSAGE 1; BASOPHILS % 0.5 % (0.0-2.0); EOSINOPHILS # 0.2 10^3/ul (0.0-0.5); EOSINOPHILS % 2.4 % (0.0-7.0); HEMATOCRIT 31.9 % (37.0-47.0); HEMOGLOBIN 9.2 g/dl (12.0-16.0); LYMPHOCYTES # 0.7 10^3/ul (0.8-2.9); LYMPHOCYTES % 11.1 % (15.0-51.0); MEAN CORPUSCULAR HEMOGLOBIN 27.7 pg (29.0-33.0); MEAN CORPUSCULAR HGB CONC 28.8 g/dl (32.0-37.0); MEAN CORPUSCULAR VOLUME 96.1 fl (82.0-101.0); MEAN PLATELET VOLUME 10.7 fl (7.4-10.4); MONOCYTE # 0.5 10^3/ul (0.3-0.9); MONOCYTES % 7.5 % (0.0-11.0); NEUTROPHIL # 4.9 10^3/ul (1.6-7.5); PLATELET COUNT 339 10^3/UL (140-415); RED BLOOD COUNT 3.32 10^6/ul (4.20-5.40); RED CELL DISTRIBUTION WIDTH 17.2 % (11.5-14.5)
[2018-10-13 08:39] LABS: POSITIVE DIFF @See below
[2018-10-13] MEDS: GABAPENTIN 300 MG CAP PO ×3 (09:00→21:58)
[2018-10-13 09:03] LABS: ANION GAP 3 (5-13); BLOOD UREA NITROGEN 9 mg/dl (7-20); CALCIUM 8.2 mg/dl (8.4-10.2); CARBON DIOXIDE 40 mmol/L (21-31); CHLORIDE 97 mmol/L (97-110); CREATININE 0.85 mg/dl (0.44-1.00); GLUCOSE 92 mg/dl (70-220); MAGNESIUM 1.6 mg/dl (1.7-2.5); PHOSPHORUS 3.8 mg/dl (2.5-4.9); POTASSIUM 3.8 mmol/L (3.5-5.1); SODIUM 140 mmol/L (135-144)
[2018-10-13] MEDS: MULTIVITAMINS 30 ML CUP NGT (13:36)
[2018-10-13] MEDS: CALCIUM/VITAMIN D (500/200) TAB PO (13:37)
[2018-10-13] MEDS: AMIODARONE 200 MG TAB PO ×2 (13:37→21:58)
[2018-10-13] MEDS: FUROSEMIDE 40 MG TAB PO (13:37)
[2018-10-13] MEDS: ASCORBIC ACID 500 MG TAB PO ×2 (13:38→21:58)
[2018-10-13] MEDS: MAGNESIUM SULFATE 1 GM/D5W 100 ML IVPB (13:39)
[2018-10-13] MEDS: NYSTATIN 30 GM POWDER BTL TOP ×2 (13:39→21:59)
[2018-10-13] MEDS: WARFARIN 3 MG TAB PO (17:42)
[2018-10-14] MEDS: LEVALBUTEROL (NEB) 0.63 MG/3 ML AMP HHN ×4 (01:05→20:28)
[2018-10-14] MEDS: ACETYLCYSTEINE 20% 4 ML VIAL NEB ×4 (01:06→20:28)
[2018-10-14] MEDS: LEVOTHYROXINE 100 MCG TAB PO ×2 (05:52→09:26)
[2018-10-14] MEDS: LANSOPRAZOLE 30 MG CAP GTB (05:52)
[2018-10-14 05:55] LABS: INR 3.08; PROTIME 32.7 Sec (11.9-14.9); PT RATIO 2.6
[2018-10-14] MEDS: FUROSEMIDE 40 MG TAB PO (09:25)
[2018-10-14] MEDS: AMIODARONE 200 MG TAB PO ×2 (09:26→21:09)
[2018-10-14] MEDS: CALCIUM/VITAMIN D (500/200) TAB PO (09:26)
[2018-10-14] MEDS: ASCORBIC ACID 500 MG TAB PO ×2 (09:26→21:09)
[2018-10-14] MEDS: GABAPENTIN 300 MG CAP PO ×3 (09:26→21:09)
[2018-10-14] MEDS: MULTIVITAMINS 30 ML CUP NGT (09:27)
[2018-10-14] MEDS: NYSTATIN 30 GM POWDER BTL TOP ×2 (09:35→21:18)
[2018-10-14] MEDS: WARFARIN 3 MG TAB PO (17:49)
[2018-10-15] MEDS: ACETYLCYSTEINE 20% 4 ML VIAL NEB ×3 (03:44→14:24)
[2018-10-15] MEDS: LEVALBUTEROL (NEB) 0.63 MG/3 ML AMP HHN ×3 (03:44→14:24)
[2018-10-15] MEDS: LANSOPRAZOLE 30 MG CAP GTB (05:16)
[2018-10-15 06:16] LABS: INR 3.64; PROTIME 37.4 Sec (11.9-14.9); PT RATIO 2.9
[2018-10-15 06:23] LABS: BLOOD UREA NITROGEN 8 mg/dl (7-20); CALCIUM 8.4 mg/dl (8.4-10.2); CHLORIDE 97 mmol/L (97-110); CREATININE 0.83 mg/dl (0.44-1.00); GLUCOSE 78 mg/dl (70-220); MAGNESIUM 1.6 mg/dl (1.7-2.5); PHOSPHORUS 3.2 mg/dl (2.5-4.9); POTASSIUM 4.1 mmol/L (3.5-5.1); SODIUM 142 mmol/L (135-144)
[2018-10-15 06:29] LABS: ANION GAP 5 (5-13)
[2018-10-15 06:36] LABS: CARBON DIOXIDE 40 mmol/L (21-31)
[2018-10-15] MEDS: FUROSEMIDE 40 MG TAB PO (08:23)
[2018-10-15] MEDS: GABAPENTIN 300 MG CAP PO ×2 (08:24→12:18)
[2018-10-15] MEDS: ASCORBIC ACID 500 MG TAB PO (08:24)
[2018-10-15] MEDS: AMIODARONE 200 MG TAB PO (08:24)
[2018-10-15] MEDS: MULTIVITAMINS 30 ML CUP NGT (08:25)
[2018-10-15] MEDS: CALCIUM/VITAMIN D (500/200) TAB PO (08:25)
[2018-10-15] MEDS: NYSTATIN 30 GM POWDER BTL TOP (08:25)
[2018-10-15] MEDS: MAGNESIUM SULFATE 1 GM/D5W 100 ML IVPB (12:19)
== END 2018-10-15 17:01 | DRG 871 ==
LOC: ICU 10-02 11:55 → 6WM 10-07 18:51 → E/R 19:53 → ICU 09-23 13:47 → TEL 10-01 20:13 → PP2 21:37
PROVIDERS: Family Medicine
PROC: 02HV33Z Insertion of Infusion Device into Superior Vena Cava, Percutaneous Approach (ICD-10-PCS; principal; 2018-09-23)
PROC: 5A09457 Assistance with Respiratory Ventilation, 24-96 Consecutive Hours, Continuous Positive Airway Pressure (ICD-10-PCS; 2018-09-25)
PROC: 0BH17EZ Insertion of Endotracheal Airway into Trachea, Via Natural or Artificial Opening (ICD-10-PCS; 2018-09-27)
PROC: 5A1945Z Respiratory Ventilation, 24-96 Consecutive Hours (ICD-10-PCS; 2018-09-27)
DX: A41.9 Sepsis, unspecified organism (principal); R65.21 Severe sepsis with septic shock; G92 Toxic encephalopathy; N17.0 Acute kidney failure with tubular necrosis; J18.9 Pneumonia, unspecified organism; J96.02 Acute respiratory failure with hypercapnia; J96.01 Acute respiratory failure with hypoxia; I50.33 Acute on chronic diastolic (congestive) heart failure; N39.0 Urinary tract infection, site not specified; E87.1 Hypo-osmolality and hyponatremia; E87.2 Acidosis; Z68.42 Body mass index [BMI] 45.0-49.9, adult; A04.72 Enterocolitis due to Clostridium difficile, not specified as recurrent; I82.509 Chronic embolism and thrombosis of unspecified deep veins of unspecified lower extremity; E87.4 Mixed disorder of acid-base balance; I13.0 Hypertensive heart and chronic kidney disease with heart failure and stage 1 through stage 4 chronic kidney disease, or unspecified chronic kidney disease; B37.49 Other urogenital candidiasis; N18.3 Chronic kidney disease, stage 3 (moderate); E66.01 Morbid (severe) obesity due to excess calories; Z66 Do not resuscitate; I48.0 Paroxysmal atrial fibrillation; E03.9 Hypothyroidism, unspecified; K42.9 Umbilical hernia without obstruction or gangrene; E86.1 Hypovolemia; D50.9 Iron deficiency anemia, unspecified; E87.6 Hypokalemia; E86.0 Dehydration; B36.8 Other specified superficial mycoses; B95.2 Enterococcus as the cause of diseases classified elsewhere; E83.42 Hypomagnesemia; G62.9 Polyneuropathy, unspecified; F41.9 Anxiety disorder, unspecified; Z79.01 Long term (current) use of anticoagulants
CPT/HCPCS: 31500; 36415; 36430; 36569; 36600; 71045; 74176; 76775; 76937; 80048; 80053; 81001; 81003; 82270; 82533; 82550; 82553; 82570; 82728; 82803; 82962; 83036; 83540; 83605; 83735; 83930; 83935; 84100; 84300; 84439; 84443; 84484; 85025; 85610; 85730; 86850; 86900; 86901; 86920; 87040; 87045; 87070; 87075; 87081; 87086; 87177; 87205; 89220; 92526; 92610; 93005; 93306; 94002; 94003; 94640; 94660; 94664; 94770; 96374; 96375; 97110; 97162; 97164; 97530; 99285-25; J1120